=== PATIENT | female | born 1965 | race Caucasian/White ===

== ENCOUNTER 2024-07-12 14:32 | Outpatient (AMB) | payer OTHER, SELFPAY ==
--- NOTE | 2024-07-12 14:49 | A.OFFVIS_ITS ---
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 No complaints. Last Pap/HPV was negative in 03/30, no records available Last Mammogram done in 08/29 at [facility] according to the patient the results were negative, the patient is the patient's for another screening mammogram in 08/30 at [facility] Last Colonoscopy was done 2 years ago, the recommendation was to repeat in 3 years according to the patient, no records available [facility] Medical History Cervical high risk HPV (human papillomavirus) test positive Surgical History History of intestinal surgery Family History Maternal Grandmother Leukemia Ovarian cancer Social History Household Members: None Housing: Apartment Alcohol intake: current Alcohol intake frequency: holidays/special occasions o nly Patient Tobacco Use Status: Former Tobacco user Years Smoked: 30 years Current occupational status: employed Current occupation: OT Sexual orientation: Straight/Heterosexual Gender identity: Female Female Reproductive History Menstrual Menopause type: natural Total pregnancies: 2 Full term: 2 Number of Living Children: 2 Review of Systems Const All systems reviewed & are unremarkable except as noted in HPI and below Card Reports as per HPI Resp Reports as per HPI GI Reports as per HPI and Reports no additional complaints Reports as per HPI Physical Exam Vital Signs: Last Vital Signs BP 112/78 07/12/24 14:50 BMI result Body Mass Index 19.6 Const General: cooperative, healthy appearing and comfortable Chest Chest palpation & inspection: normal inspection of the chest and normal palpation of entire chest wall Breast/axilla inspection: normal inspection of the breasts and normal inspection of the axillae Breast/axilla palpation: normal palpation of the breasts, normal palpation of the axillae and no axillary lymphadenopathy Resp Effort & Inspection: normal respiratory effort Auscultation: clear to auscultation bilaterally Percussion: percussion normal Cardio Palpation: normal PMI Rate: regular rate Rhythm: regular rhythm Heart sounds: no murmurs and no rubs Peripheral pulses: Peripheral pulses 2+ throughout GI Inspection: Yes normal to inspection Palpation (GI): Soft to palpation, nontender, no guarding, not rigid and No hepatosplenomegaly present Percussion: Yes normal to percussion Auscultation: normal bowel sounds Rectal Exam - Female: deferred General: Yes bladder normal to palpation External Female Exam: No lesion Speculum Exam - Vagina: normal appearance of the vagina, normal palpation, normal vaginal discharge and not erythematous Speculum Exam - Cervix: normal appearance of the cervix and normal palpation Bimanual exam- vagina & uterus: normal bimanual exam, normal palpation, uterine size normal, bladder normal to palpation, consistency normal and normal palpation Bimanual Exam- Adnexa, other: normal adnexae, no masses and no tenderness Assessment & Plan Assessment & Plan (1) Well woman exam: Code(s): Z01.419 - Encounter for gynecological examination (general) (routine) without abnormal findings Category: Medical Plan: Cotesting done. Mammogram scheduled in a months at [facility] according to the patient Counseled the patient about the recommended dietary allowance of 1000 mg of Calcium & 600 IU of vitamin D. The patient was instructed to perform monthly self-breast exams and to schedule an annual exam in a year; All questions answered and the patient verbalized understanding. Instructed the patient to schedule annual exam in a year Coding Level of Care Code New Pt Prev Care 40-64y(02535) Diagnoses Well woman exam Z01.419
[2024-07-12 14:50] VITALS: BP 112/78; BMI 19.6
--- OUTSIDE RECORDS SUMMARY | 2024-07-12 15:41 | XMS_ITS | Encounter Summary ---
Author Organization [facility] Address [id number] [place] [phone] Care Team Providers Care Cytotechnologist Name Role Phone Holly Lal MD Primary Care Pr ovider Reason for Referral * Imaging (Routine) - Pending Review Specialty Diagnoses / Procedures Referred By Waldo corado Referred To Contact Radiology Diagnoses Liver lesion Procedures US Abdomen Limited Holly Lal MD [address] [place] [address] Phone: tel: fax: [address] Phone: tel: Referral ID Status Reason Start Date Expiration Date V isits Requested Visits Authorized [id number] Pending Review 06/19/2024 06/19/2025 1 1 Reason for Visit * Imaging (Routine) - Pending Review Specialty Diagnoses / Procedures Referred By Waldo corado Referred To Contact Radiology Diagnoses Liver lesion Procedures US Abdomen Limited Holly Lal MD [address] [place] [address] Phone: tel: fax: [address] Phone: tel: Referral ID Status Reason Start Date Expiration Date V isits Requested Visits Authorized [id number] Pending Review 06/19/2024 06/19/2025 1 1 Encounter Details Date Type Department Care Team (Latest Contact Info) Description 07/10/2024 7:27 AM EDT - 07/10/2024 11:59 PM EDT Hospital Encounter Radiology Department - [address] [phone] Liver lesion Discharge Disposition: Home or Self Care Social History Tobacco Use Types Packs/Day Years Used Date Smoking Tobacco: Former Cigarettes 0.8 42 1 980 - 2021 Comments:Quit tobacco use 2. 5 years ago; previously smoked up to 1PPD for about 30 years. smoked 5 cigs a day at the least Alcohol Use Standard Drinks/Week Comments Yes 0 (1 standard drink = 0.6 oz pur e alcohol) spijed rodrigueztzer 8 drinks a week Housing Instability Answer Date Recorde d Are you worried that in the next 2 months you may not have stable housing? No 05/17/2024 Food Access & Nutrition Answer Date Rec orded Do you have access to a vari ety of food including fruits and vegetables? Yes 05/17/2024 Access to Healthcare Answer Date Record ed Within the last 3 months, ho w many times did you visit the emergency department for your medical care? 0 05/17/2024 Health Literacy Answer Date Recorded How often do you need to hav e someone help you when you read instructions, pamphlets, or other written material from your doctor or pharmacy? Never 05/17/2024 Caregiver: How often do you need to have someone help you when you read instructions, pamphlets, or other written material from your doctor or pharmacy? Not on file 05/17/2024 Financial Risk Answer Date Recorded How hard is it for you to pa y for the very basics like food, housing, medical care, and air conditioning / heating? Patient declined 05/17/2024 Transportation Answer Date Recorded Has the lack of transportati on kept you from meetings, work, or from getting things needed for daily living? No Has the lack of transportati on kept you from medical appointments or from getting medications? No 05/17/2024 Social Isolation Answer Date Recorded How often do you feel lonely or isolated from th ose around you? Never 05/17/2024 Food Risk Answer Date Recorded Within the past 12 months we worried whether our food would run out before we got money to buy more. Never true 05/17/2024 Within the past 12 months th e food we bought just didn't last and we didn't have money to get more. Never true 05/17/2024 Dependent Care Answer Date Recorded Do you need help finding or paying for care for your loved ones. For example, residential child care counselor or elderly care for an older adult? No 05/17/2024 Education Answer Date Recorded Do you think completing more education or training, like finishing a GED, going to college, or learning a trade, would be helpful for you? No 05/17/2024 Employment and Income Answer Date Recor ded During the last four weeks, have you been actively looking for work? No 05/17/2024 Living Situation Answer Date Recorded What is your living situation? 0 05/17/2024 Comments Unknown Sex and Gender Information Value Date Recorded Sex Assigned at Female 06/09/2024 9:49 AM EDT Legal Sex Female 8:59 PM EST Gender Identity Female 06/09/2024 9:49 AM EDT Sexual Orientation Straight 06/09/2024 9: 49 AM EDT documented as of this encounter Medications at Time of Discharge calcium citrate/vitamin D3 (CITRACAL + D MAXIMUM ORAL) Take by mouth daily. LORazepam (ATIVAN) 1 mg tabletIndications :Primary insomnia Take 1 tablet (1 mg total) by mouth 1 (one) time each day if needed for anxiety. Max Daily Amount: 1 mg 28 tablet 05/17/2024 MAGNESIUM ORAL Take by mouth daily. melatonin 5 mg capsule Take 1 Capsule by mouth at bedtime as needed. MULTIVITAMIN ORAL Take by mouth daily. turmeric root extract 500 mg capsule Take by mouth daily. vitamin E, dl,tocopheryl acet, (vitamin E, dl, acetate,) 180 mg (400 unit) capsule Take 1 capsule (400 Units total) by mouth 1 (one) time each day. documented as of this encounter Discharge Disposition Disposition Code Departure Means Destination Home or Self Care documented in this encounter Plan of Treatment Upcoming Encounters Date Type Department Care Team (Late st Contact Info) Description 08/21/2024 1:20 PM EDT Consult Gastroenterology - [address] [facility] [address] [place] [phone] Saroj Redmond PA [address] [address] 08/29/2024 10:00 AM EDT Appointment Radiology Department - [address] [phone] 05/24/2025 3:00 PM EDT Office Visit Adult Medicine [address] [phone] Holly Lal MD [address] [place] [address] documented as of this encounter Procedures Procedure Name Priority Date/Time Associated Diagnosis Comments US ABDOMEN LIMITED Routine 07/10/2024 8: 06 AM EDT Liver lesion documented in this encounter Results * US Abdomen Limited (07/10/2024 8:06 AM EDT) Anatomical Region Laterality Modality Body Ultrasound 07/10/2024 8:52 AM EDT Impressions 07/10/2024 9:17 AM EDT 1.2 x 1.1 x 1.4 cm echogenic lesion in the dome of the liver, likely representing a hemangioma. 0.6 x 0.7 x 1.0 cm cyst in the right lobe of the liver. 0.9 x 0.9 x 1.0 cm probable angiomyolipoma of the upper pole of the right kidney. -------- FINAL REPORT -------- Dictated By: Nurys Guillen Dictated Date: 07/10/2024 08:52 ET Assigned Physician: Nurys Guillen Reviewed and Electronically Signed By: Nurys Guillen Signed Date: 07/10/2024 09:17 ET Workstation ID: [id number] Transcribed By: Self Edit Transcribed Date: 07/10/2024 08:52 ET Narrative 07/10/2024 9:17 AM EDT ABDOMINAL ULTRASOUND-LIMITED History: ??2 liver lesions noted on all the CT. Comparison: Dictated report of chest CT 06/19/2024 is available for review. FINDINGS: There is no evidence of cholelithiasis. The common bile duct is not dilated, measuring 3 mm. ??The gallbladder wall is not thickened. No pericholecystic fluid is seen. No ascites are seen. The visualized pancreas is normal in size and demonstrates normal echotexture. The liver measures 11.7 cm in length and demonstrates normal echotexture. There is a 1.3 x 1.1 x 1.4 cm echogenic lesion in the dome of the liver, and this likely represents a hemangioma. There is a 0.6 x 0.7 x 1.0 cm cyst in the right lobe of the liver. There is no evidence of intrahepatic ductal dilation. Normal hepatopedal flow is seen in the main portal vein. No evidence of hydronephrosis or calculus was seen in the right kidney. ?? There is a 0.9 x 0.9 x 1.0 cm rounded echogenic lesion in the upper pole of the right kidney, and this likely represents an angiomyolipoma. The right kidney measures 12.7 cm in greatest length. Procedure Note Nurys Guillen MD - 07/10/2024 ABDOMINAL ULTRASOUND-LIMITED History: 2 liver lesions noted on all the CT. Comparison: Dictated report of chest CT 06/19/2024 is available for review. FINDINGS: There is no evidence of cholelithiasis. The common bile duct isnot dilated, measuring 3 mm. The gallbladder wall is not thickened. Nopericholecystic fluid is seen. No ascites are seen. The visualized pancreas is normal in size and demonstrates normalechotexture. The liver measures 11.7 cm in length and demonstrates normalechotexture. There is a 1.3 x 1.1 x 1.4 cm echogenic lesion in the dome of the liver,and this likely represents a hemangioma. There is a 0.6 x 0.7 x 1.0 cm cyst in the right lobe of the liver. There is no evidence of intrahepatic ductal dilation. Normal hepatopedalflow is seen in the main portal vein. No evidence of hydronephrosis or calculus was seen in the right kidney. There is a 0.9 x 0.9 x 1.0 cm rounded echogenic lesion in the upper poleof the right kidney, and this likely represents an angiomyolipoma. The right kidney measures 12.7 cm in greatest length. IMPRESSION: 1.2 x 1.1 x 1.4 cm echogenic lesion in the dome of the liver, likelyrepresenting a hemangioma. 0.6 x 0.7 x 1.0 cm cyst in the right lobe of the liver. 0.9 x 0.9 x 1.0 cm probable angiomyolipoma of the upper pole of the rightkidney. -------- FINAL REPORT -------- Dictated By: Nurys Guillen Dictated Date: 07/10/2024 08:52 ET Assigned Physician: Nurys Guillen Reviewed and Electronically Signed By: Nurys Guillen Signed Date: 07/10/2024 09:17 ET Workstation ID: [id number] Transcribed By: Self Edit Transcribed Date: 07/10/2024 08:52 ET us Holly Lal MD [facility] [place] Final Result documented in this encounter Visit Diagnoses Diagnosis Liver lesion Other specified disorders of liver Encounter for screening mammogram for breast cancer documented in this encounter Additional Health Concerns Assessment Noted Time PHQ-9 Depression Total Score: 3 05/18/19 25 3:00 PM EDT documented as of this encounter Care Teams Cytotechnologist Relationship Specialty Start Date End Date Holly Lal MD [address] [place] [phone] PCP - General 10/02/22 documented as of this encounter
--- OUTSIDE RECORDS SUMMARY | 2024-07-12 15:41 | XMS_ITS | Encounter Summary ---
Author Organization [facility] Address [id number] [place] [phone] Care Team Providers Care Window Clerk Name Role Phone Holly Lal MD Primary Care Pr ovider Reason for Referral * Consultation (Routine) - Authorized Specialty Diagnoses / Procedures Referred By Waldo corado Referred To Contact Nephrology Diagnoses Angiomyolipoma of kidney Holly Lal MD [address] [place] [address] Phone: tel: fax: Nephrology [address] Phone: tel: fax: Referral ID Status Reason Start Date Expiration Date Visits Requested Visits Authorized [id number] Authorized Specialty Services Required 07/12/2024 07/12/2025 1 1 * Consultation (Routine) - Authorized Specialty Diagnoses / Procedures Referred By Waldo corado Referred To Contact Hematology / Hematology and Oncology Diagnoses Neutropenia, unspecified type (CMS/HCC V24) Holly Lal MD [address] [place] [address] Phone: tel: fax: [facility] Hematology Oncology [address] [place] [address] Phone: tel: fax: Referral ID Status Reason Start Date Expiration Date Visits Requested Visits Authorized [id number] Authorized Specialty Services Required 07/12/2024 07/12/2025 1 1 * Consultation (Routine) - Authorized Specialty Diagnoses / Procedures Referred By Waldo corado Referred To Contact Gastroenterology Diagnoses Liver cyst Liver hemangioma Holly Lal MD [address] [place] [phone] Phone: tel: fax: Gastroenterology - [address] [facility] [address] [place] [phone] Phone: tel: fax: Referral ID Status Reason Start Date Expiration Date Visits Requested Visits Authorized [id number] Authorized Specialty Services Required 07/12/2024 07/12/2025 1 1 Encounter Details Date Type Department Care Team (Late st Contact Info) Description 07/12/2024 Telephone Adult Medicine [address] [phone] Holly Lal MD [address] [place] [phone] Social History Tobacco Use Types Packs/Day Years Used Date Smoking Tobacco: Former Cigarettes 0.8 42 1 980 - 2021 Comments:Quit tobacco use 2. 5 years ago; previously smoked up to 1PPD for about 30 years. smoked 5 cigs a day at the least Alcohol Use Standard Drinks/Week Comments Yes 0 (1 standard drink = 0.6 oz pur e alcohol) maury valadez 8 drinks a week Housing Instability Answer [...] care for your loved ones. For example, child support specialist or elderly care for an older adult? [...] AM EDT documented as of this encounter Progress Notes * Holly Lal MD - 07/12/2024 8:23 AM EDT Called patient to discuss results. Abdominal ultrasound showed suspected liver hemangioma and livercyst. It also showed suspected angiomyolipoma of the kidney Blood work was overall normal with exception of mild neutropenia/leukopenia She was referred to GI for the liver cyst, hematology for the neutropenia and nephrology for the angiomyolipoma. All questions answered documented in this encounter Plan of Treatment Upcoming Encounters Date Type Department Care Team ([facility] st Contact Info) Description 08/21/2024 1:20 PM EDT Consult Gastroenterology - [address] [place] [phone] Saroj Redmond PA [address] [place] [phone] 08/29/2024 10:00 AM EDT Appointment Radiology Department - [address] [phone] 05/24/2025 3:00 PM EDT Office Visit Adult Medicine [address] [phone] Holly Lal MD [address] [place] [phone] Scheduled Referrals Name Type Priority Associated Diagnoses Order Schedule Ambulatory referral to Gastroenterology Outpatient Referral Routine Liver cyst Liver hemangioma Expected: 07/12/2024, Expires: 07/12/2025 Ambulatory referral to Hematology Outpatient Referral Routine Neutropenia, unspecified type (CMS/HCC V24) 1 Occurrences starting 07/12/2024 until 07/12/2025 Ambulatory referral to Nephrology Outpatient Referral Routine Angiomyolipoma of kidney 1 Occurrences starting 07/12/2024 until 07/12/2025 documented as of this encounter Visit Diagnoses Diagnosis Angiomyolipoma of kidney- Primary Liver cyst Other specified disorders of liver Liver hemangioma Neutropenia, unspecified type (CMS/HCC V24) Encounter for screening mammogram for breast cancer documented in this encounter Additional Health Concerns Assessment Noted Time PHQ-9 Depression Total Score: 3 05/18/19 25 3:00 PM EDT documented as of this encounter Care Teams Window Clerk Relationship Specialty Start Date End Date Holly Lal MD [address] [place] [id number] PCP - General 10/02/22 documented as of this encounter
--- OUTSIDE RECORDS SUMMARY | 2024-07-12 15:41 | XMS_ITS | Clinical Summary ---
Author Organization [address] Address [address] [place] [phone] Phone Care Team Providers Care Flap Curer Name Role Phone Holly Lal MD Primary Care Pr ovider Allergies Active Allergy Reactions Criticality Noted Date Comments Ciprofloxacin 05/14/2023 Metronidazole 05/14/2023 Medications melatonin 5 mg capsule Take 1 Capsule by mouth at bedtime as needed. Active turmeric root extract 500 mg capsule Take by mouth daily. Active MULTIVITAMIN ORAL Take by mouth daily. Active MAGNESIUM ORAL Take by mouth daily. Active calcium citrate/vitamin D3 (CITRACAL + D MAXIMUM ORAL) Take by mouth daily. Active vitamin E, dl,tocopheryl acet, (vitamin E, dl, acetate,) 180 mg (400 unit) capsule Take 1 capsule (400 Units total) by mouth 1 (one) time each day. Active LORazepam (ATIVAN) 1 mg tabletIndicatio ns:Primary insomnia Take 1 tablet (1 mg total) by mouth 1 (one) time each day if needed for anxiety. Max Daily Amount: 1 mg 28 tablet 05/17/2024 Active Active Problems Problem Noted Date Diagnosed Date Angiomyolipoma of kidney 07/12/2024 Liver cyst 07/12/2024 Liver hemangioma 07/12/2024 Neutropenia (CMS/HCC V24) 07/12/2024 Pulmonary nodules 06/19/2024 Centrilobular emphysema (CMS/HCC V24, CMS/HCC V2 8) 06/19/2024 Liver lesion 06/19/2024 Moderate tobacco use disorder, in sustained diego ssion 05/17/2024 Assessment & Plan (05/17/2024 10:36 PM EDT): Quit tobacco use 2.5 years ago; previously smoked up to 1PPD for about 30 years. She will benefit from lung cancer screening and is referred Orders: Ambulatory referral to Thoracic Surgery; Future Current every day nicotine vaping 05/17/2024 Assessment & Plan (05/17/2024 10:36 PM EDT): Cessation counseling provided. History of diverticulitis of colon 05/17/2024 Assessment & Plan (05/17/2024 10:36 PM EDT): See HPI Advised that I recommend evaluation in the office for flares. I am aware Levaquin works best for her flares and we are happy to prescribe this at an office visit. Advised if she is not able to get a timely appt, she can go to Urgent care Cervical radiculopathy 05/15/2023 Lipoma 05/15/2023 Chronic left shoulder pain 05/15/2023 Primary insomnia 05/15/2023 Assessment & Plan (05/17/2024 10:36 PM EDT): Continue ativan as needed. 28 tablets last 6 months No indication for CSC MassPat reviewed and appropriate Orders: LORazepam (ATIVAN) 1 mg tablet; Take 1 tablet (1 mg total) by mouth 1 (one) time each day if needed for anxiety. Max Daily Amount: 1 mg History of colectomy 05/15/2023 Syncope 06/22/2022 Encounters Date Type Department Care Team Description 07/12/2024 Telephone Adult Medicine [address] [phone] Holly Lal MD 07/10/2024 7:27 AM EDT - 07/10/2024 11:59 PM EDT Hospital Encounter Radiology Department - [address] [phone] Liver lesion Discharge Disposition: Home or Self Care 06/20/2024 Telephone Lung Screening Program - [address] [phone] Latia Paulino MA Results (Baseline - Lung Screening) 06/14/2024 3:45 PM EDT - 06/14/2024 11:59 PM EDT Hospital Encounter [facility] CT Scan [address] [place] [phone] Encounter for screening for lung cancer; History of tobacco use Discharge Disposition: Home or Self Care 06/14/2024 3:30 PM EDT Office Visit Lung Screening Program - [place] [address] [facility] [address] [place] [phone] Ward Leung PA Encounter for screening for malignant neoplasm of lung in former smoker who quit in past 15 years with 30 pack year history or greater (Primary Dx); Moderate tobacco use disorder, in sustained remission 06/09/2024 Telephone Adult Medicine [address] [phone] Saray Cottrell MA Letter for School/Work 06/05/2024 Telephone Adult Medicine [address] [phone] Camila Baird MA letter request 05/22/2024 Telephone Adult [address] [phone] Holly Lal MD Referral 05/17/2024 3:00 PM EDT Office Visit [address] [phone] Holly Lal MD Annual physical exam (Primary Dx); Moderate tobacco use disorder, in sustained remission; Current every day nicotine vaping; Primary insomnia; Cervical cancer screening; History of diverticulitis of colon; Screening for metabolic disorder; Skin lesion; Calf cramp 04/17/2024 Telephone Adult Medicine [address] [phone] Steffany Watkins RN 04/17/2024 Nurse Triage Adult [address] [phone] Holly Lal MD Diverticulitis from Last 3 Months Immunizations Name Administration Dates Next Due Tdap Tetanus diptheria acell ular pertussis (Boostrix; Adacel) 7yo and older 05/08/2022 Surgical History Surgery Date Site/Laterality Comments OTHER SURGICAL HISTORY 03/08/2004 - 03/07/2005 PROCEDURE: DE COLECTOMY PARTIAL W/ANASTOMOSIS COLONOSCOPY 12/19/2019 repeat in 10 years; diverticulosis Medical History Medical History Date Comments Occipital trauma DX:Occipital tr auma; COMMENT: left, laceration URI (upper respiratory infection) DX:URI (upper respiratory infection) Anxiety DX:Anxiety Insomnia DX:Insomnia Tobacco use DX:Tobacco use Diverticulitis DX:Diverticuliti s Family History Medical History Relation Name Comments Other: Diverticular Disease Brother Prostate cancer Father adopted; bio oogical father VERONIQUE huynh she was one Cervical cancer Maternal Grandmother Leukemia Maternal Grandmother Other: Malignant Neoplasm Disease Maternal Grandmother Uterine cancer Maternal Grandmother Other: Diverticular Disease Mother Diverticulosis Sister Leukemia Uncle Other: Tongue Carcinoma Uncle Breast cancer Neg Hx Colon cancer Neg Hx Ovarian cancer Neg Hx Relation Name Status Comments Brother Father Maternal Grandfather Maternal Grandmother Mother Alive Paternal Grandfather Paternal Grandmother Sister Uncle Maternal Social History Tobacco Use Types Packs/Day Years Used Date Smoking Tobacco: Former Cigarettes 0.8 42 1 980 - 2021 Tobacco Cessation:Counseling Given: Not Answered Comments:Quit tobacco use 2.5 years ago; previously smoked up to 1PPD [...] for your loved ones. For example, child welfare counselor or elderly care for an older [...] Orientation Straight 06/09/2024 9: 49 AM EDT Obstetrics History Last Filed Vital Signs Vital Sign Reading Time Taken Comments Blood Pressure 114/83 05/17/2024 3:12 PM EDT Pulse 71 05/17/2024 3:12 PM EDT Temperature 36.6 ??C (97.9 ??F) 06/14/2024 3:26 PM ED T Respiratory Rate 17 05/17/2024 3:12 PM EDT Oxygen Saturation - - Inhaled Oxygen Concentration - - Weight 57.2 kg (126 lb) 05/17/2024 3:12 PM EDT Height 170.2 cm (5' 7 ) 05/17/2024 3:12 PM EDT Body Mass Index 19.73 05/17/2024 3:12 PM EDT Plan of Treatment Upcoming Encounters Date Type Department Care Team (Late st Contact Info) Description 08/21/2024 1:20 PM EDT Consult Gastroenterology - [facility] [address] [facility] [address] [place] [phone] Saroj [place] PA [address] [facility] [address] [place] [address] [place] [address] 08/29/2024 10:00 AM EDT Appointment Radiology Department - [address] [phone] 05/24/2025 3:00 PM EDT Office Visit Adult Medicine [facility] - [address] [phone] Holly Lal MD [address] [place] [phone] Health Maintenance Due Date Last Done Comments HIV Screening 04/02/2023 Zoster Vaccines (2 of 2) 07/13/2024 05/18/2024 Cervical Cancer Screening: Pap Smear 03/24/2025 03/24/2022 Depression Screening 05/17/2025 05/17/2024 Social Influencers of Health Screening 05/17/2025 05/17/2024 Lung Cancer Screening (Low Dose CT) 06/14/2025 06/14/2024 Breast Cancer Screening 06/23/2025 06/24/2023, 07/29 Cholesterol Screening (Lipid Panel) 07/10/2029 07/10/2024, 06/25/2023 Colorectal Cancer Screening: Colonoscopy 12/18/2029 12/19/2019 DTaP,Tdap,and Td Vaccines (4 - Td or Tdap) 05/08/2032 05/08/2022, 12/06/2016, 01/07/2003 RSV Immunization Adult Patients (1 - 1-dose 75+ series) 2040 Influenza Vaccine Discontinued 11/27/2020, , 12/06/2017, Additional history exists COVID-19 Vaccine Discontinued 04/07/2021, , 06/03/2020 Hepatitis C Screening Completed 06/25/2023 HIB Vaccines Aged Out No longer eligi ble based on patient's age to complete this topic HPV Vaccines Aged Out No longer eligi ble based on patient's age to complete this topic Hepatitis A Vaccines Aged Out No long er eligible based on patient's age to complete this topic Hepatitis B Vaccines Discontinued IPV Vaccines Aged Out No longer eligi ble based on patient's age to complete this topic MMR Vaccines Aged Out No longer eligi ble based on patient's age to complete this topic Meningococcal ACWY Vaccine Aged Out N o longer eligible based on patient's age to complete this topic Meningococcal B Vaccine Aged Out No l onger eligible based on patient's age to complete this topic Pneumococcal Vaccine: 50+ Years Discontinued Pneumococcal Vaccine: Pediatrics (0 to 5 Years) and At-Risk Patients (6 to 64 Years) Discontinued RSV Immunization Patients Under 20 months Aged Out No longer eligible based on patient's age to complete this topic Varicella Vaccines Aged Out No longer eligible based on patient's age to complete this topic Procedures Procedure Name Priority Date/Time Associated Diagnosis Comments CBC WITH AUTO DIFFERENTIAL Routine 07/10/2024 8:26 AM EDT Screening for metabolic disorder CBC AND DIFFERENTIAL Routine 07/10/2024 8:26 AM EDT Screening for metabolic disorder COMPREHENSIVE METABOLIC PANEL Routine 07/10/2024 8:26 AM EDT Screening for metabolic disorder LIPID PANEL WITH REFLEX TO DIRECT LDL Routine 07/10/2024 8:26 AM EDT Screening for metabolic disorder HEMOGLOBIN A1C Routine 07/10/2024 8:26 AM EDT Screening for metabolic disorder US ABDOMEN LIMITED Routine 07/10/2024 8: 06 AM EDT Liver lesion CT LUNG SCREENING Routine 06/14/2024 4:2 1 PM EDT Encounter for screening for lung cancer History of tobacco use HEPATITIS C SCREENING Routine 06/25/2023 SCREENING MAMMOGRAPHY BI 2-VIEW BREAST INC CAD Routine 06/24/2023 4:12 PM EDT Encounter for screening mammogram for malignant neoplasm of breast COLONOSCOPY Routine 12/19/2019 from Last 3 Months or Most Recently Relevant to Health Maintenance Results * Lipid panel with reflex to direct LDL (07/10/2024 8:26 AM EDT) Cholesterol 190 0 - 200 mg/dL LAB CHEMISTRY METHOD 07/10/2024 11:16 AM [facility] Triglycerides 65 0 - 150 mg/dL LAB CHEMISTRY METHOD 07/10/2024 11:16 AM [facility] HDL 98 >=40 mg/dL LAB CHEMISTRY METHOD 07/10/2024 11:16 AM [facility] LDL Calculated 79 0 - 100 mg/dL LAB CHEMISTRY METHOD 07/10/2024 11:16 AM [facility] VLDL Cholesterol Tato 13 mg/dL LAB CHEMISTRY METHOD 07/10/2024 11:16 AM [facility] Non HDL Chol. (LDL+VLDL) 92 <145 mg/dL LAB CHEMISTRY METHOD 07/10/2024 11:16 AM [facility] Chol/HDL Ratio 1.9 0.0 - 4.4 LAB CHEMISTRY METHOD 07/10/2024 11:16 AM [facility] Blood Venous blood specimen / Unknown Venipuncture / Unknown 07/10/2024 8:26 AM EDT 07/10/2024 8:26 AM EDT Holly Lal MD LAB BLOOD ORDERA BLES Final Result [facility] [address] [place] [address], * (ABNORMAL) CBC auto differential (07/10/2024 8:26 AM EDT) WBC 3.4(L) 4.8 - 10.8 K/mcL LAB HEMETOLOGY METHOD 07/10/2024 10:51 AM EDT [facility] RBC 4.20 3.80 - 4.80 M/mcL LAB HEMETOLOGY METHOD 07/10/2024 10:51 AM EDT [facility] Hemoglobin 14.1 11.5 - 16.0 g/dL LAB HEMETOLOGY METHOD 07/10/2024 10:51 AM EDT [facility] Hematocrit 40.9 35.0 - 47.0 % LAB HEMETOLOGY METHOD 07/10/2024 10:51 AM EDT [facility] MCV 97.1 79.0 - 98.0 FL LAB HEMETOLOGY METHOD 07/10/2024 10:51 AM EDT [facility] MCH 33.5(H) 27.0 - 32.0 pcg LAB HEMETOLOGY METHOD 07/10/2024 10:51 AM EDT [facility] MCHC 34.5 32.0 - 37.0 g/dL LAB HEMETOLOGY METHOD 07/10/2024 10:51 AM EDT [facility] RDW 12.1 11.0 - 15.0 % LAB HEMETOLOGY METHOD 07/10/2024 10:51 AM EDT [facility] Platelets 169 130 - 400 K/mcL LAB HEMETOLOGY METHOD 07/10/2024 10:51 AM [facility] MPV 10.8 7.0 - 11.0 FL LAB HEMETOLOGY METHOD 07/10/2024 10:51 AM [facility] NRBC 0.0 <1.0 % LAB HEMETOLOGY METHOD 07/10/2024 10:51 AM [facility] NRBC Absolute 0.00 <0.10 K/mcL LAB HEMETOLOGY METHOD 07/10/2024 10:51 AM [facility] Neutrophils Relative 43.6 % LAB HEMETOLOGY METHOD 07/10/2024 10:51 AM [facility] Lymphocytes Relative 45.7 % LAB HEMETOLOGY METHOD 07/10/2024 10:51 AM [facility] Monocytes Relative 8.3 % LAB HEMETOLOGY METHOD 07/10/2024 10:51 AM [facility] Eosinophils Relative 1.2 % LAB HEMETOLOGY METHOD 07/10/2024 10:51 AM [facility] Basophils Relative 0.9 % LAB HEMETOLOGY METHOD 07/10/2024 10:51 AM [facility] Immature Granulocytes Relative 0.3 % LAB HEMETOLOGY METHOD 07/10/2024 10:51 AM [facility] Neutrophils Absolute 1.47(L) 1.50 - 7.00 K/mcL LAB HEMETOLOGY METHOD 07/10/2024 10:51 AM [facility] Lymphocytes Absolute 1.54 1.00 - 5.00 K/mcL LAB HEMETOLOGY METHOD 07/10/2024 10:51 AM [facility] Monocytes Absolute 0.28 0.20 - 1.00 K/mcL LAB HEMETOLOGY METHOD 07/10/2024 10:51 AM [facility] Eosinophils Absolute 0.04 0.00 - 0.50 K/mcL LAB HEMETOLOGY METHOD 07/10/2024 10:51 AM EDT [facility] Basophils Absolute 0.03 0.00 - 0.20 K/[facility] HEMETOLOGY METHOD 07/10/2024 10:51 AM EDT [facility] Immature Granulocytes Absolute 0.01 0.00 - 0.03 K/[facility] LAB HEMETOLOGY METHOD 07/10/2024 10:51 AM EDT [facility] Blood Venous blood specimen / Unknown Venipuncture / Unknown 07/10/2024 8:26 AM EDT 07/10/2024 8:26 AM EDT Holly Lal MD LAB BLOOD ORDERA BLES Final Result Performing Organization Address City/[facility]/ZIP Co de Phone Number [facility] [address] [place] [address], [place] [phone] * Hemoglobin A1c (07/10/2024 8:26 AM EDT) Hemoglobin A1C 5.0 <6.5 % LAB CHEMISTRY METHOD 07/10/2024 1:43 PM EDT [facility] Mean Bld Glu Estim. 97 mg/dL LAB CHEMISTRY METHOD 07/10/2024 1:43 PM EDT [facility] Blood Venous blood specimen / Unknown Venipuncture / Unknown 07/10/2024 8:26 AM EDT 07/10/2024 8:26 AM EDT us Holly Lal MD LAB BLOOD ORDERA BLES Final Result [facility] [address] [place] [address], [place] [phone] * Comprehensive metabolic panel (07/10/2024 8:26 AM EDT) Sodium 141 133 - 145 mmol/L LAB CHEMISTRY METHOD 07/10/2024 11:16 AM [facility] Potassium 4.1 3.5 - 5.5 mmol/L LAB CHEMISTRY METHOD 07/10/2024 11:16 AM [facility] Chloride 105 96 - 110 mmol/L LAB CHEMISTRY METHOD 07/10/2024 11:16 AM [facility] CO2 28 21 - 32 mmol/L LAB CHEMISTRY METHOD 07/10/2024 11:16 AM [facility] Anion Gap 8 3 - 11 LAB CHEMISTRY METHOD 07/10/2024 11:16 AM [facility] Glucose 80 70 - 100 mg/dL LAB CHEMISTRY METHOD 07/10/2024 11:16 AM [facility] BUN 7 5 - 25 mg/dL LAB CHEMISTRY METHOD 07/10/2024 11:16 AM [facility] Creatinine 0.55 0.50 - 1.10 mg/dL LAB CHEMISTRY METHOD 07/10/2024 11:16 AM [facility] eGFR 106 >=60 mL/min/1. 73m2 LAB CHEMISTRY METHOD 07/10/2024 11:16 AM [facility] Comment:Calculation based on the??Chronic Kidney Disease Epidemiology Collaboration (CKD-EPI) equation refit??without adjustment for race. BUN/Creatinine Ratio 12.7 LAB CHEMISTRY METHOD 07/10/2024 11:16 AM [facility] Calcium 8.9 8.5 - 10.5 mg/dL LAB CHEMISTRY METHOD 07/10/2024 11:16 AM [facility] AST (SGOT) 26 10 - 42 unit/L LAB CHEMISTRY METHOD 07/10/2024 11:16 AM [facility] ALT (SGPT) 25 10 - 60 unit/L LAB CHEMISTRY METHOD 07/10/2024 11:16 AM [facility] Alkaline Phosphatase 66 42 - 121 unit/L LAB CHEMISTRY METHOD 07/10/2024 11:16 AM EDT [facility] Total Protein 7.1 6.0 - 8.0 g/dL LAB CHEMISTRY METHOD 07/10/2024 11:16 AM EDT [facility] Albumin 4.0 3.2 - 5.0 g/dL LAB CHEMISTRY METHOD 07/10/2024 11:16 AM EDT [facility] Total Bilirubin 1.0 0.0 - 1.4 mg/dL LAB CHEMISTRY METHOD 07/10/2024 11:16 AM EDT [facility] Blood Venous blood specimen / Unknown Venipuncture / Unknown 07/10/2024 8:26 AM EDT 07/10/2024 8:26 AM EDT us Holly Lal MD LAB BLOOD ORDERA BLES Final Result [facility] [address] [place] [address], [place] [phone] * US Abdomen Limited (07/10/2024 8:06 AM [...] Signed Date: 07/10/2024 09:17 ET Workstation ID: [id number] Transcribed By: Self Edit Transcribed Date: 07/10/2024 [...] Signed Date: 07/10/2024 09:17 ET Workstation ID: [id number] Transcribed By: Self Edit Transcribed Date: 07/10/2024 08:52 ET us Holly Lal MD IMG US PROCEDURE S Final Result * CT Lung Screening (06/14/2024 4:21 PM EDT) Anatomical Region Laterality Modality Chest Computed Tomogra phy 06/19/2024 9:22 AM EDT Impressions 06/19/2024 10:10 AM EDT Impression: 1. Few sub-4 mm pulmonary nodules. Continued annual low-dose screening is recommended. 2. 12 mm hepatic lesion, for which targeted ultrasound is recommended. Lung-RADS Category: ??Lung-RADS 2: Nodule(s) with benign appearance or behavior. Continue annual screening with Low Dose Chest CT in 12 months. ?? Modifier S: Clinically Significant or Potentially Clinically Significant Findings. S code given for the 12 mm hepatic lesion which requires additional imaging evaluation. [employer]eler[employer] PA ([id number]) -------- FINAL REPORT -------- Dictated By: Tara Barakat Dictated Date: 06/19/2024 09:22 ET Assigned Physician: Tara Barakat Reviewed and Electronically Signed By: Tara Barakat Signed Date: 06/19/2024 10:10 ET Workstation ID: [id number] Transcribed By: Self Edit Transcribed Date: 06/19/2024 09:30 ET Narrative 06/19/2024 10:10 AM EDT History: ??59 year-old 31 pack-year former smoker, asymptomatic, for lung cancer screening. Quit smoking 3 years ago. Comparison: No comparison imaging at this institution. Technique: Helical volumetric imaging of the thorax was performed, using low- dose technique, without IV contrast. DLP: 114.80 mGy/cm ??CTDIvol: 3.22 mGy IquaT Iterative reconstruction technique Findings: Lungs and Airways: The trachea and central bronchial tree are patent. Minimal peripheral mucous plugging is noted. There is patchy centrilobular emphysema. Minimal dependent density is seen at the lung bases, possibly atelectasis. Few sub-4 mm solid, noncalcified nodules are seen bilaterally, the largest a 3 mm nodule in the right lower lobe (image 154 series 3). Pleura: No pleural or pericardial effusions are seen. Base of neck, mediastinum and heart: The heart is normal in size. Minimal atherosclerotic calcification is seen in the aortic arch. Included portions of the thyroid gland are unremarkable. No thoracic lymphadenopathy is seen. Soft tissues: The overlying soft tissues are unremarkable. A 7 mm circumscribed round hypoattenuating lesion in the dome of the liver most likely represents a cyst. There is an adjacent 12 mm hypoattenuating lesion (image 101 series 4) that is well above water attenuation, with a solid lesion not excluded. Abdomen: This study was performed without contrast and with lower than standard dose. These factors reduce the sensitivity for detection of small lesions in the upper abdomen. A 7 mm circumscribed round hypoattenuating lesion in the dome of the liver most likely represents a cyst. There is an adjacent 12 mm hypoattenuating lesion (image 101 series 4) that is well above water attenuation, with a solid lesion not excluded. Procedure Note Tara Barakat MD - 06/19/2024 History: 59 year-old 31 pack-year former smoker, asymptomatic, for lungcancer screening. Quit smoking 3 years ago. Comparison: No comparison imaging at this institution. Technique: Helical volumetric imaging of the thorax was performed, usinglow-dose technique, without IV contrast. DLP: 114.80 mGy/cm CTDIvol: 3.22 mGy [employer] VCT Iterative reconstruction technique Findings: Lungs and Airways: The trachea and central bronchial tree are patent.Minimal peripheral mucous plugging is noted. There is patchy centrilobularemphysema. Minimal dependent density is seen at the lung bases, possiblyatelectasis. Few sub-4 mm solid, noncalcified nodules are seen bilaterally, the largesta 3 mm nodule in the right lower lobe (image 154 series 3). Pleura: No pleural or pericardial effusions are seen. Base of neck, mediastinum and heart: The heart is normal in size. Minimalatherosclerotic calcification is seen in the aortic arch. Includedportions of the thyroid gland are unremarkable. No thoraciclymphadenopathy is seen. Soft tissues: The overlying soft tissues are unremarkable. A 7 mmcircumscribed round hypoattenuating lesion in the dome of the liver mostlikely represents a cyst. There is an adjacent 12 mm hypoattenuatinglesion (image 101 series 4) that is well above water attenuation, with asolid lesion not excluded. Abdomen: This study was performed without contrast and with lower thanstandard dose. These factors reduce the sensitivity for detection of smalllesions in the upper abdomen. A 7 mm circumscribed round hypoattenuatinglesion in the dome of the liver most likely represents a cyst. There is anadjacent 12 mm hypoattenuating lesion (image 101 series 4) that is wellabove water attenuation, with a solid lesion not excluded. IMPRESSION: Impression: 1. Few sub-4 mm pulmonary nodules. Continued annual low-dose screening isrecommended. 2. 12 mm hepatic lesion, for which targeted ultrasound is recommended. Lung-RADS Category: Lung-RADS 2: Nodule(s) with benign appearance orbehavior. Continue annual screening with Low Dose Chest CT in 12 months.Modifier S: Clinically Significant or Potentially Clinically SignificantFindings. S code given for the 12 mm hepatic lesion which requires additionalimaging evaluation. Telerad PA ([id number]) -------- FINAL REPORT -------- Dictated By: Tara Barakat Dictated Date: 06/19/2024 09:22 ET Assigned Physician: Tara Barakat Reviewed and Electronically Signed By: Tara Braakat Signed Date: 06/19/2024 10:10 ET Workstation ID: [id number] Transcribed By: Self Edit Transcribed Date: 06/19/2024 09:30 ET Angie Vernon MD IMG CT PROCEDURES Final Result * Hepatitis C Screening (06/25/2023) Hepatitis C Screening abstracted Historical Provider HEALTH MAINTENANCE Final Result * SCREENING MAMMOGRAPHY BI 2-VIEW BREAST INC CAD (06/24/2023 4:12 PM EDT) Anatomical Region Laterality Modality Radiographic Lily ging 05/14/2023 3:14 PM EST Narrative 06/25/2023 10:12 AM EDT This is a summary report. The complete report is available in the patient's medical record. If you cannot access the medical record, please contact the sending organization for a detailed fax or copy. Full field digital screening tomosynthesis mammography, reviewed with CAD and compared to previous. The breasts are composed of fatty and fibroglandular tissue. ??No suspicious mass, architectural distortion or suspicious calcifications are identified. IMPRESSION: : No mammographic evidence of malignancy. BIRADS 1-Negative; N. 5 year breast cancer risk assessment 1.2 % Lifetime breast cancer risk assessment 6.9 % Breast cancer risk category Breast cancer risk not assessed Procedure Note Mauricio Langston MD - 10/25/2023 This is a summary report. The complete report is available in thepatient's medical record. If you cannot access the medical record, pleasecontact the sending organization for a detailed fax or copy. Full field digital screening tomosynthesis mammography, reviewed with CADand compared to previous. The breasts are composed of fatty andfibroglandular tissue. No suspicious mass, architectural distortion orsuspicious calcifications are identified. IMPRESSION: : No mammographic evidence of malignancy. BIRADS 1-Negative; N. 5 year breast cancer risk assessment 1.2 % Lifetime breast cancer risk assessment 6.9 % Breast cancer risk category Breast cancer risk not assessed Holly Lal MD IMG XR PROCEDURE S Final Result * Colonoscopy (12/19/2019) Colonoscopy no interpreta tion,abstr actedd Anatomical Region Laterality Modality Other Historical Provider HEALTH MAINTENANCE Final Result from Last 3 Months or Most Recently Relevant to Health Maintenance Insurance [facility] Care Teams Flap Curer Relationship Specialty Start Date End Date Holly Lal MD [address] [place] [address] PCP - General 10/02/22
--- OUTSIDE RECORDS SUMMARY | 2024-07-12 15:41 | XMS_ITS | Data Portability ---
Author Organization [facility], , [facility] Address [address] [place] [address] Care Team Providers Care Housekeeping Department Worker Name Role Phone JOEL BELTRAN Webbing Seamer Pound Net Assessment Encounter Date Assessment Date Assessment LastModified by Organization Details LastModified Time 05/10/2020 05/10/2020 Patient agreed to this visit via a secure telehealth platform due to the COVID -19 pandemic. Patient understands this is a scheduled visit and the usual procedures with regard to billing and confidentialit y apply. Patient was notified that the provider location is Patient location: home During the visit the patient? s medical history and medical record were reviewed. The patient was notified to call our office for worsening or urgent symptoms. Not available 05/10/2020 11:36:12 08/01/2020 08/01/2020 Patient agreed to this visit via a secure telehealth platform due to the COVID -19 pandemic. Patient understands this is a scheduled visit and the usual procedures with regard to billing and confidentialit y apply. Patient was notified that the provider location is home Patient location: home During the visit the patient? s medical history and medical record were reviewed. The patient was notified to call our office for worsening or urgent symptoms. Not available 08/01/2020 13:52:10 Plan of Treatment Reminders Order Date Submit Date Provider Last Modified By Organization Details Last Modified Time Details Appointments None recorded. Lab tissue transglutam inase iga Ab, serum 2022 023 [facility], [address] [facility], [place], [address], 3 23:53:54 gliadin peptide igg Ab, serum 2022 023 [facility], [address] [place] [address], [address], 3 23:53:52 gliadin peptide iga Ab, serum 2022 023 [facility], [address] [place] [address], [address], 3 23:53:50 CBC 2022 023 [facility], [address] [place] [address], [address], 3 16:53:09 CMP, serum or plasma 2022 023 [facility], [address] [place] [address], [address], 3 16:12:57 TSH, serum or plasma 2022 023 [facility], [address] [place] [address], [address], 3 11:08:12 pap, LB + HPV - if HPV positive reflex to HPV subtyping 2022 023 [facility] (Pathology), [address] [place] [address], [address], 3 11:12:17 pap, LB + HPV - if HPV positive reflex to HPV subtyping 2021 022 [facility] (Pathology), [address] [place] [address], [address], 2 18:05:50 Referral plastic surgeon referral - small lesion on right face- growing/benson nging over past 6 mo- needs removal 2020 021 jaylen 1 Tomas Garza MD, [address] [place] [address], [address], 1 08:46:46 Procedures None recorded. Surgeries None recorded. Imaging MAMMO, screening, tomosynthes is, bilateral [address] (Imaging), [address], [place], [address], 3 21:27:54 MAMMO, screening, tomosynthes is, bilateral 2020 021 [facility] (Imaging), [address] [place], [address], 1 08:42:31 MAMMO, screening, tomosynthes is, bilateral - new provider [address] (Imaging), [address] [place], [address], 1 14:24:51 MAMMO, screening, tomosynthes is, bilateral [address] (Imaging), [address] [place], [address], 1 11:38:49 Medication Orders None recorded. Patient TargetsNo targets recorded. Patient Instructions Encounter Date Encounter Id Patient Instructions Last Modified By Organization Details Last Modified Time 05/10/2020 [id number] deciding about using medicines to quit smoking tfurcolo Not available 05/10/2020 11:53:31 Quitting Tobacco : Care Instructions tfurcolo Not available 05/10/2020 11:53:31 Counseling done {{Patient not ready to quit Contemplatin g quitting Tapering Cigarettes signed up for support prescript ion for stop smoking medication given}} {{Patient not ready to quit Contemplatin g quitting Tapering Cigarettes signed up for support prescript ion for stop smoking medication given}} Goal for follow up visit {{adding exercise regular meals stress management improv ing sleep therapist identifying sponsor}} {{adding exercise regular meals stress management improv ing sleep therapist identifying sponsor}} {{adding exercise regular meals stress management improv ing sleep therapist identifying sponsor}}My Health To Do List {{go to [email or web address] or call si gn up for marika text 2 quit or other stop smoking marika contact MobileIron.[email or web address]}} {{go to [email or web address] or call si gn up for marika text 2 quit or other stop smoking marika contact MobileIron.gov}} {{go to [email or web address] or call si gn up for marika text 2 quit or other stop smoking marika contact MobileIron.gov}} Not available 05/10/2020 11:37:59 08/01/2020 [id number] deciding about using medicines to quit smoking Not available 08/01/2020 11:39:09 Quitting Tobacco : Care Instructions Not available 08/01/2020 11:39:08 Counseling done {{Patient not ready to quit Contemplatin g quitting Tapering Cigarettes signed up for support prescript ion for stop smoking medication given}} {{Patient not ready to quit Contemplatin g quitting Tapering Cigarettes signed up for support prescript ion for stop smoking medication given}} Goal for follow up visit {{adding exercise regular meals stress management improv ing sleep therapist identifying sponsor}} {{adding exercise regular meals stress management improv ing sleep therapist identifying sponsor}} {{adding exercise regular meals stress management improv ing sleep therapist identifying sponsor}}My Health To Do List {{go to [employer] or call si gn up for marika text 2 quit or other stop smoking marika contact [email or web address].gov}} {{go to [email or web address] or call si gn up for marika text 2 quit or other stop smoking marika contact MobileIron.gov}} {{go to [email or web address] or call si gn up for marika text 2 quit or other stop smoking marika contact MobileIron.gov}} [email or web address] Not available 08/01/2020 11:22:08 11/27/2020 [id number] deciding about using medicines to quit smoking tfurcolo Not available 11/27/2020 14:14:52 Quitting Tobacco : Care Instructions tfurcolo Not available 11/27/2020 14:14:52 well visit, wome n 50 to 65: care instructions tfurcolo Not available 11/27/2020 14:14:52 Counseling done {{Patient not ready to quit* Contemplati ng quitting Tapering Cigarettes signed up for support prescript ion for stop smoking medication given}} tfurcolo Not available 11/27/2020 14:18:36 03/23/2022 [id number] well visit, wome n 50 to 65: care instructions tfurcolo Not available 03/23/2022 14:38:23 up to date with colonoscopy- done 2019 mammogram- due by nov 2022 tfurcolo Not available 03/23/2022 14:47:43 Reason for Referral Plastic Surgeon Referral for Lesion of skin of face small lesion on right face- growing/changing over past 6 mo- needs removal Referring Physician: Dillon Villanueva, Family Medicine, Encounter Date: 05/10/2020 Results Created Date Observation Date Name Description Value Unit Range Abnormal Flag Note LastModifiedBy Organization Detail LastModifiedTime 06/24/19 22 07/01/2021 PAP SMEAR path report [facility] [address] [place] [address] Lab Direc tor: Odalys lopez MD SERVICE CLERK Cytol ogy Repor t Acces bakari #: [id number] FINAL DIAGN OSIS A. PAP SMEAR (SURE PATH) CE: SPECI MEN ADEQU ACY: Satis facto ry for evalu ation ; trans forma tion zone prese nt. INTER PRETA TION: NEGAT KELSIE FOR INTRA EPITH ELIAL LESIO N OR MALIG MELISSA . Cocco bacil li consi stent with shift in shirlene Elect darya ally Dianna d Out By: Odalys lopez MD By his/h er arlyn tolliver above , the patho logis t liste d as ferny grayson the Final Diagn osis certi fies that he/sh e has perso ledy revie wed this case and confi rmed or corre cted the diagn osis. The Pap test is a scree malathi test prima rily for squam ous cance rs and precu rsors and has assoc iated false -nega tive and false -posi tive resul ts. New techn ologi es such as liqui d-bas ed prepa ratio ns may decre ase but will not elimi dionisio all false -nega tive resul ts. Regul ar sampl ing and follo w-up of unexp lg d clini vipul signs and sympt oms are recom jun d to minim ize false negat kelsie resul ts. PROCE DURES /ADDE NDA HPV Testi ng (Requ ested ) Order ed Date: 2021 A. PAP SMEAR (SURE PATH) CE: Human Papil kady Virus TEST Posit kelsie for high- risk Human Papil kady Virus (HR-H PV); addit ional testi ng was necsierra quiñonezy to ident alicia the most virul ent high- risk strai ns. The curre nt sampl e is posit kelsie for high- risk Human Papil kady Virus type Othe r high risk (non- type 16, 18, or 45) probe set (Incl udes 31, 33, 35, 39, 51, 52, 56, 58, 59, 66, 68) by Brenna dennison Oncla rity HR-HP V coy sis. Negat kelsie for high- risk Human Papil kady Virus types 16, 18 and 45 by Becto anthony Dicki nson Oncla rity HR-HP V coy sis. Clini vipul corre latio n is advis ed. This HPV test was perfo rmed at [facility], [address] [facility]. This test has been FDA appro skye for SureP ath cervi vipul cytol ogy speci mens. The accur acy and preci bakari of this test for all other speci men sourc es has been verif ied in the Cytop athol ogy Labor atory of the [facility] and has not been clear ed or appro skye by the U.S. Food and Drug Admin istra tion. Clini vipul corre latio n is advis ed. Alisson ctron icall y Dianna d Out By: Elias Perez on 2021 09:57 CLINI VIPUL HISTO RY Date of Last Menst rual Perio d: Not Provi ded Menst rual Histo ry: Unkno wn Infec tion Histo ry: HPV: OTHER HIGH RISK, 2019 Other Clini vipul Condi tions : Scree malathi Pap Abnor mal PAP: LSIL, 2019 SPECI MEN SOURC E A: PAP SMEAR (SURE PATH) CE Patie nt Name: ALVARO JACOBSON EN : [birth year] (Age: 56) Sex: F 9 Insti tutio n: [facility] Locat ion: [facility] Date of Colle ction : 2021 Date of Acces bakari: 2021 Repor nayeli: 2021 17:36 Resul ts to: Martha Berrios hneid er DIRECTOR ORACLE DATABASE Not Available [facility] (Outpatient) [address] [place] [address], [address], 07/01/2021 18:05:50 07/10/19 22 07/11/2021 CHLAM YDIA/ GC, BAUDILIO N. gonorrhoeae GC NEG negati ve normal Not Available [address], [address], 07/11/2021 14:43:31 07/10/19 22 07/11/2021 CHLAM YDIA/ GC, BAUDILIO C. trachomatis CT NEG negati ve normal Not Available [address], [address], 07/11/2021 14:43:31 07/10/19 22 07/21/2021 BACTE RIAL VAGIN OSIS/ VAGIN ITIS bv, RNA BV POS negati ve abnormal The aptim a BV assay is utili zed for the detec tion of ribos omal RNA from bacte anastasia assoi cated with bacte rial vagin osis( BV), inclu ding Lacto bacil lis (L. gasse ri, L. crisp stus, and L. jense ellie), Gardn erell a vagin keily, and Atopo bium vagin ae. The assay repor ts a quali tativ e resul t for BV and does not repor t resul ts for indiv idual organ isms. Not Available [address], [address], 07/21/2021 12:47:22 07/10/19 22 07/21/2021 BACTE RIAL VAGIN OSIS/ VAGIN ITIS tahira species group (C. albicans, C. tropicalis, C. parapsilosis ), RNA C. SPP NEG negati ve normal Not Available [address], [address], 07/21/2021 12:47:22 07/10/19 22 07/21/2021 BACTE RIAL VAGIN OSIS/ VAGIN ITIS tahira glabrata, RNA C. GLA NEG negati ve normal Not Available [address], [address], 07/21/2021 12:47:22 07/10/19 22 07/21/2021 BACTE RIAL VAGIN OSIS/ VAGIN ITIS trichomonas vaginalis, RNA TRICH NEG negati ve normal Not Available [address], [address], 07/21/2021 12:47:22 03/23/19 23 03/23/2022 CBC WBC 8.20 K/? ? ?L 3.98-1 0.04 Not Available [address], [address], 03/23/2022 16:53:09 03/23/19 23 03/23/2022 CBC RBC 4.12 M/? ? ?L 3.93-5 .22 Not Available [address], [address], 03/23/2022 16:53:09 03/23/19 23 03/23/2022 CBC HGB 14.0 g/dL 11.2-1 5.7 Not Available [address], [address], 03/23/2022 16:53:09 03/23/19 23 03/23/2022 CBC HCT 40.3 % 34.1-4 4.9 Not Available [address], [address], 03/23/2022 16:53:09 03/23/19 23 03/23/2022 CBC MCV 97.8 fL 79.4-9 4.8 high Not Available [address], [address], 03/23/2022 16:53:09 03/23/19 23 03/23/2022 CBC MCH 34.0 pg 25.6-3 2.2 high Not Available [address], [address], 03/23/2022 16:53:09 03/23/19 23 03/23/2022 CBC MCHC 34.7 g/dL 32.2-3 5.5 Not Available [address], [address], 03/23/2022 16:53:09 03/23/19 23 03/23/2022 CBC plt 208 K/? ? ?L 182-36 9 Not Available [address], [address], 03/23/2022 16:53:09 03/23/19 23 03/23/2022 CBC MPV 10.9 fL 9.4-12 .3 Not Available [address], [address], 03/23/2022 16:53:09 03/23/19 23 03/23/2022 CBC neut% 69.7 % 34.0-7 1.1 Not Available [address], [address], 03/23/2022 16:53:09 03/23/19 23 03/23/2022 CBC neut# 5.71 1.56-6 .13 Not Available [address], [address], 03/23/2022 16:53:09 03/23/19 23 03/23/2022 CBC lymph % 23.2 % 19.3-5 1.7 Not Available [address], [address], 03/23/2022 16:53:09 03/23/19 23 03/23/2022 CBC lymph # 1.90 K/? ? ?L 1.18-3 .74 Not Available [address], [address], 03/23/2022 16:53:09 03/23/19 23 03/23/2022 CBC mono% 5.2 % 4.7-12 .5 Not Available [address], [address], 03/23/2022 16:53:09 03/23/19 23 03/23/2022 CBC mono# 0.43 0.24-0 .56 Not Available [address], [address], 03/23/2022 16:53:09 03/23/19 23 03/23/2022 CBC eo% 1.2 % 0.7-5. 8 Not Available [address], [address], 03/23/2022 16:53:09 03/23/19 23 03/23/2022 CBC eo# 0.10 0.04-0 .36 Not Available [address], [address], 03/23/2022 16:53:09 03/23/19 23 03/23/2022 CBC baso% 0.5 % 0.1-1. 2 Not Available [address], [address], 03/23/2022 16:53:09 03/23/19 23 03/23/2022 CBC baso# 0.04 0.00-0 .08 Not Available [address], [address], 03/23/2022 16:53:09 03/23/19 23 03/23/2022 CBC RDW-CV 11.7 % 11.7-1 4.4 Not Available [address], [address], 03/23/2022 16:53:09 03/23/19 23 03/23/2022 CBC Ig% 0.200 % 0.000- 1.500 Ig % >0.5 Indic ates possi ble Left Shift Not Available [address], [address], 03/23/2022 16:53:09 03/23/19 23 03/23/2022 CBC Ig# 0.020 0.000- 0.093 Not Available [address], [address], 03/23/2022 16:53:09 03/23/19 23 03/23/2022 CBC NRBC% 0.0 % 0.0-0. 2 Not Available [address], [address], 03/23/2022 16:53:09 03/23/19 23 03/23/2022 CBC NRBC# 0.000 0.000- 0.012 Not Available [address], [address], 03/23/2022 16:53:09 03/23/19 23 03/24/2022 TSH TSH 1.21 uIU/m L 0.50-6 .00 The [facility] Endoc rinol ogy and [facility] Thyro id Assoc iatio n recom mend goal TSH value s betwe en 0.4-4 .0 mIU/m L. Not Available [address], [address], 03/24/2022 11:08:12 03/23/19 23 03/24/2022 COMP. METAB OLIC PANEL glucose 117 mg/dL 70-100 high Not Available [address], [address], 03/24/2022 16:12:57 03/23/19 23 03/24/2022 COMP. METAB OLIC PANEL BUN 12 mg/dL 7-18 Not Available [address], [address], 03/24/2022 16:12:57 03/23/19 23 03/24/2022 COMP. METAB OLIC PANEL creatinine 0.8 mg/dL 0.8-1. 3 Not Available [address], [address], 03/24/2022 16:12:57 03/23/19 23 03/24/2022 COMP. METAB OLIC PANEL B/C 15.0 ratio Not Available [address], [address], 03/24/2022 16:12:57 03/23/19 23 03/24/2022 COMP. METAB OLIC PANEL GFR >=60ML /MIN mL/mi n normal >=60m L/min - Erica l or midly reduc ed <60mL /min- Decre ased kidne y funct ion <15mL /min - Kidne y failu re [facility] calcu lates estim ated Glome rular Filtr ation Rate (eGFR ) using the Chron ic Kidne y Disea se Epide miolo gy Colla borat ion (CKD- EPI) Equat ion (Mike r et. al 2020) as recom jun d by the Natio nal Kidne y Found ation . eGFR is based on age, serum creat inine , and sex. CKD-E PI does not calcu late eGFR by race, does not apply to child lizbeth (age <18 years ), and shoul d not be used in pregn mauricio. Not Available [address], [address], 03/24/2022 16:12:57 03/23/19 23 03/24/2022 COMP. METAB OLIC PANEL sodium 140 mmol/ L 136-14 5 Not Available [address], [address], 03/24/2022 16:12:57 03/23/19 23 03/24/2022 COMP. METAB OLIC PANEL potassium 4.8 mmol/ L 3.5-5. 1 Not Available [address], [address], 03/24/2022 16:12:57 03/23/19 23 03/24/2022 COMP. METAB OLIC PANEL chloride 102 mmol/ L 96-107 Not Available [address], [address], 03/24/2022 16:12:57 03/23/19 23 03/24/2022 COMP. METAB OLIC PANEL anion gap 9.9 5.0-15 .0 Not Available [address], [address], 03/24/2022 16:12:57 03/23/19 23 03/24/2022 COMP. METAB OLIC PANEL CO2 28 mmol/ L 21-32 Not Available [address], [address], 03/24/2022 16:12:57 03/23/19 23 03/24/2022 COMP. METAB OLIC PANEL calcium 9.4 mg/dL 8.5-10 .3 Not Available [address], [address], 03/24/2022 16:12:57 03/23/19 23 03/24/2022 COMP. METAB OLIC PANEL total protein 7.6 g/dL 6.4-8. 2 Not Available [address], [address], 03/24/2022 16:12:57 03/23/19 23 03/24/2022 COMP. METAB OLIC PANEL albumin 4.6 g/dL 3.4-5. 0 Not Available [address], [address], 03/24/2022 16:12:57 03/23/19 23 03/24/2022 COMP. METAB OLIC PANEL globulin 3.0 g/dL Not Available [address], [address], 03/24/2022 16:12:57 03/23/19 23 03/24/2022 COMP. METAB OLIC PANEL A/G 1.5 ratio 0.8-2. 0 Not Available [address], [address], 03/24/2022 16:12:57 03/23/19 23 03/24/2022 COMP. METAB OLIC PANEL total bilirubin 0.80 mg/dL 0.00-1 .00 Not Available [address], [address], 03/24/2022 16:12:57 03/23/19 23 03/24/2022 COMP. METAB OLIC PANEL AST 26 U/L 0-37 Not Available [address], [address], 03/24/2022 16:12:57 03/23/19 23 03/24/2022 COMP. METAB OLIC PANEL ALT 28 U/L 6-63 Not Available [address], [address], 03/24/2022 16:12:57 03/23/19 23 03/24/2022 COMP. METAB OLIC PANEL alk. phos. 77 U/L 50-136 Not Available [address], [address], 03/24/2022 16:12:57 03/23/19 23 03/24/2022 GLIAD IN (DEAM IDATE D) AB (IGA) gliadin (deamidated) Ab (IgA) 3.4 U/mL normal Value Inter preta tion ----- ----- ----- ---- <15.0 Antib merly not detec nayeli > or = 15.0 Antib merly detec nayeli Not Available [facility] [address], [address], 03/24/2022 23:53:50 03/23/19 23 03/24/2022 GLIAD IN (DEAM IDATE D) AB (IGG) gliadin (deamidated) Ab (IgG) <1.0 U/mL normal Value Inter preta tion ----- ----- ----- ---- <15.0 Antib merly not detec nayeli > or = 15.0 Antib merly detec nayeli Not Available [facility] [address], [address], 03/24/2022 23:53:52 03/23/19 23 03/24/2022 TISSU E TRANS GLUTA TERESA E AB, IGA tissue transglutami nase Ab, IgA <1.0 U/mL normal Value Inter preta tion ----- ----- ----- ---- <15.0 Antib merly not detec nayeli > or = 15.0 Antib merly detec nayeli Not Available [facility] [address], [address], 03/24/2022 23:53:54 03/23/19 23 03/27/2022 PAP TEST path report [facility] [address] [place] [address] Lab Direc tor: Odalys lopez MD SERVICE CLERK Cytol ogy Repor t Acces bakari #: [id number] FINAL DIAGN OSIS A. PAP SMEAR (SURE PATH) CE: SPECI MEN ADEQU ACY: Satis facto ry for evalu ation ; trans forma tion zone prese nt. INTER PRETA TION: NEGAT KELSIE FOR INTRA EPITH ELIAL LESIO N OR MALIG MELISSA . Elect darya michaellouis Dianna d Out By: Ana Maria Sharpe , CT( CP) Dimas blair, CT( CP) The Pap test is a scree malathi test prima rily for squam ous cance rs and precu rsors and has assoc iated false -nega tive and false -posi tive resul ts. New techn ologi es such as liqui d-bas ed prepa ratio ns may decre ase but will not elimi dionisio all false -nega tive resul ts. Regul ar sampl ing and follo w-up of unexp lg d clini vipul signs and sympt oms are recom jun d to minim ize false negat kelsie resul ts. PROCE DURES /ADDE NDA HPV Testi ng (Requ ested ) Order ed Date: 2022 A. PAP SMEAR (SURE PATH) CE: Human Papil kady Virus Test NEGAT KELSIE for high- risk Human Papil kady Virus types 16, 18, 45 and the Othe r high risk probe set (Incl udes 31, 33, 35, 39, 51, 52, 56, 58, 59, 66, 68) Note: Testi ng perfo rmed by Brenna parks HR-HP V coy sis. Clini vipul corre latio n is advis ed. This HPV test was perfo rmed at [facility], [address] [facility]. This test has been FDA appro skye for SureP ath cervi vipul cytol ogy speci mens. The accur acy and preci bakari of this test for all other speci men sourc es has been verif ied in the Cytop athol ogy Labor atory of the [facility] and has not been clear ed or appro skye by the U.S. Food and Drug Admin istra tion. Clini vipul corre latio n is advis ed. Alisson ctron icall y Dianna d Out By: Elias Perez on 2022 12:01 CLINI VIPUL HISTO RY Date of Last Menst rual Perio d: Not Provi ded Menst rual Histo ry: Unkno wn Infec tion Histo ry: HPV: OTHER HIGH RISK, 2021 Other Clini vipul Condi tions : Scree malathi Pap SPECI MEN SOURC E A: PAP SMEAR (SURE PATH) CE Patie nt Name: ALVARO JACOBSON EN : [birth year] (Age: 57) Sex: F 9 Insti tutio n: [facility] Locat ion: [facility] Date of Colle ction : 2022 Date of Acces bakari: 2022 Repor nayeli: 2022 11:10 Resul ts to: Dillon Addison lo DO, BA Not Available [facility] (Outpatient) [address] [place], [address], 03/27/2022 11:12:17 12/01/19 21 11/27/2020 MAMMO , scree malathi, tomos ynthe sis, bilat eral OBSERV ATION: CLINIC AL HISTOR Y: Screen ing. TECHNI QUE: 3D mammog mik (tomos ynthes is) and 2D mammog mik (C-vie w) images are genera nayeli. Images review ed with a CAD system . COMPAR LINO: Prior mammog meagan throug h 08/07/19 17. FINDIN GS: The breast parenc hyma is compos ed of scatte red areas of fibrog landul ar densit y. There are no suspic ious masses . There are no suspic ious microc alcifi cation s. The breast kaz ecture is normal . There has been no signif icant change compar ed to the prior study. IMPRES BAKARI: No mammog raphic eviden ce of malign mauricio. Annual mammog raphic screen ing recomm ended. This facili ty uses a remind er system with a target date for the next mammog agatha. Breast densit y: B. There are scatte red areas of fibrog landul ar densit y. BIRADS : 1, NEGATI VE Electr onical ly signed Readin g Physic vicky: Julieta Deleon ms [facility] (Imaging) [address], [place], [address], 12/05/2020 17:18:21 06/19/19 23 04/05/2022 CT, brain , w/o contr ast No observ ation record ed. [facility] [address], [place], [address], 06/19/2022 08:36:30 07/15/19 23 11/27/2020 bi mammo gram outsi de (no inter preta tion) This study is for PACS storag e only and not for interp retati on. Final result /-/-/- This study was perfor med and interp reted outsid e of Natasha Beebe son It has been import ed to the [facility] Tactilize system for review , based upon servando gurrola provid ed by the source instit hector hurtprkarey [facility] [address], [place], [address], 07/14/2022 15:25:18 07/31/19 23 07/29/2022 MAMMO , scree malathi, tomos ynthe sis, bilat eral, w/ CAD STUDY: Bilate ral screen ing mammog mik with tomosy nthesi s and CAD TECHNI QUE: Bilate ral full-f ield digita l screen ing mammog mik is obtain ed and read in conjun ction with comput er-aid ed detect ion. Tomosy nthesi s as well as 2-D C view imagin g were obtain ed. COMPAR LINO: Compar lino made to multip le prior studie s dating back to May 2013. BILATE RAL BREAST S: No new masses , suspic ious calcif icatio ns or other abnorm alitie s are seen. No signif icant interv al change . IMPRES BAKARI: BILATE RAL BREAST S: Benign , no eviden ce of malign mauricio. Recomm end bilate ral annual screen ing mammog mik in 12 months . DENSIT Y: There are scatte red fibrog landul ar densit ies. Bi-RAD S: BI-RAD S CATEGO RY: 2 - Benign findin g. RIGHT RECOMM ENDATI ON DUE DATE: 12 Months Recomm endati on: Right Mammog mik Screen ing LEFT RECOMM ENDATI ON DUE DATE: 12 Months Recomm endati on: Left Mammog mik Screen ing Electr onical ly Signed by: Mohamud robledo on 023 12:43 PM Interp reted by: Mohamud Arana MD Signed by: Mohamud Arana MD 3 Final result Routin e screen ing Last mm 2020 B-1 Id verifi ed by catherine PADRON DILLON L FURCOL O DILLON L FURCOL O [facility] [address] [place] [address], [id number], 07/30/2022 12:46:43 07/31/19 23 07/29/2022 MAMMO , scree malathi No observ ation record ed. [facility] [address] [place] [address], [id number], 07/31/2022 12:42:10 Result Notes None recorded. Problems Name Problem SNOMED Code Status Onset Date Resolution Date Notes Provider Name and Address Organization Details Recorded Time Breast lump 46365920 [place], [address], [facility] 6 08:08:16 Abdomina l pain 53862804 Completed 02/24/2011 [place], [address], [facility] 6 08:08:16 Divertic ulitis 886364468 Active 2016 recurren t,GI advises in future rotate antibiot ics between bactrim, cipro, amox. Do not always use levaquin . Martha jrodan NP [address] [place], [address], [facility] 0 15:32:31 Abnormal cervical Papanico laou smear 876947408 Active 2018 lgsil, negative hpv, repeat pap 09/2019 Dillon Furcolo D.O. 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 Pt asymptom atic, previous work in [employer]. Possible is carrier, possible is not, not high index of suspicio n but no other way to document this in hx. ALANA REYES MD [address] [place] [address], [phone], [facility] 1 13:58:52 Tobacco user 630078980 Active 2022 Dillon Furcolo D.O. [address] [place], [address], [facility] 3 14:03:28 Problem Notes None recorded. Procedures Surgical History Date Name Laterality Status Provider Name and Address Organization Details Recorded Time 3 Smoking cessation counseling completed Dillon Furcolo D.O. [address] [place] [address], [phone], [facility] 03/23/2022 14:47:52 1 Smoking cessation counseling completed Dillon Furcolo D.O. [address] [place] [address], [phone], [facility] 11/27/2020 14:21:47 1 Carbon Monoxide Testing completed Reanna Jesus MA [facility] 11/27/2020 13:43:30 1 COPD Screening Questions completed Reanna Jesus MA [facility] 11/27/2020 13:43:53 1 Smoking cessation counseling completed Ashley Mccullough LPN [facility] 08/01/2020 11:22:08 1 Carbon Monoxide Testing completed Ashley Mccullough LPN [facility] 08/01/2020 11:22:08 1 Smoking cessation counseling completed Aditi Haas [facility] 05/10/2020 11:37:59 1 Carbon Monoxide Testing completed Aditi Haas MA [facility] 05/10/2020 11:37:59 0 Smoking cessation counseling completed Sonia Terry CMA [facility] 11/29/2019 09:05:17 0 Smoking cessation counseling completed Bianka Day [facility] 11/23/2019 10:32:13 0 Carbon Monoxide Testing completed Bianka Day [facility] 11/23/2019 10:32:13 0 Smoking cessation counseling completed Reanna Jesus MA [facility] 04/07/2019 11:03:08 9 Smoking cessation counseling completed Betzy Brown MA [facility] 09/16/2018 10:46:12 9 Carbon Monoxide Testing completed Betzy Brown MA [facility] 09/16/2018 10:46:12 8 Smoking cessation counseling completed Reanna Jesus MA [facility] 09/14/2017 09:46:07 8 Carbon Monoxide Testing completed Reanna Jesus MA [facility] 09/14/2017 09:46:07 7 Smoking cessation counseling completed Reanna Jesus MA [facility] 09/04/2016 15:15:12 7 Carbon Monoxide Testing completed Reanna Jesus MA [facility] 09/04/2016 15:15:12 6 Smoking cessation counseling completed Reanna Jesus MA [facility] 03/21/2015 08:05:21 4 Smoking cessation counseling completed Chloé Stringer LPN [facility] 05/24/2013 15:44:05 2 Smoking cessation counseling completed Reanna Stinson [facility] 03/04/2012 15:23:23 1 Smoking cessation counseling completed Reanna Stinson [facility] 03/03/2011 15:27:26 Imaging Results Imaging Date Name Status [facility]Modified by [facility] Details LastModified Time 11/27/2020 MAMMO, screening, tomosynthesis, bilateral completed [facility] (Imaging) [address], [place], [address], 12/05/2020 17:18:21 04/05/2022 CT, brain, w/o contrast completed [facility] [address] [place] [address], [place], [address], 06/19/2022 08:36:30 11/27/2020 bi mammogram outside (no interpretation ) completed [facility] [address] [place] [address], [address], 07/14/2022 15:25:18 07/29/2022 MAMMO, screening, tomosynthesis, bilateral, w/ CAD completed [facility] [address] [place], [address], 07/30/2022 12:46:43 07/29/2022 MAMMO, screening completed [facility] [address] [place], [address], 07/31/2022 12:42:10 Procedure Notes None recorded. Medical Equipment None Reported. Allergies No known drug allergies Medications Name Sig Start Date Stop Date Status Note LastModified by Organization Details LastModified Time Mirena 21 mcg/24 hr (up to 8 years) 52 mg intrauteri ne device Take 1 device every day by intraute rine route. 09/16 completed Not Available Not Available Not Available venlafaxin e ER 37.5 mg capsule,ex tended release 24 hr TAKE 1 CAPSULE BY MOUTH EVERY DAY 09/16 completed Not Available Not Available Not Available prednisone 10 mg tablet TAKE 6TABS BY MOUTH X2DAYS, 4TABS X2DAYS, 2TABS X2DAYS, THEN 1 TAB 2 TIMES A DAY X8DAYS 09/04 completed Not Available Not Available Not Available doxycyclin e hyclate 100 mg capsule TAKE ONE CAPSULE BY MOUTH TWICE A DAY 03/23 completed Not Available Not Available Not Available nicotine 14 mg/24 hr daily transderma l patch APPLY 1 PATCH TO SKIN ONCE DAILY 11/23 completed pt states no longer taking Not Available Not Available Not Available nicotine (polacrile x) 2 mg gum Chew 1 piece of gum every 2 hours by oral route. 04/07 completed Not Available Not Available Not Available Keflex 500 mg capsule Take 1 capsule every 6 hours by oral route for 5 days. 11/23 completed 04/06 Per Grecia BLAIR note Not Available Not Available Not Available metronidaz ole 0.75 % (37.5 mg/5 gram) vaginal gel Insert 1 applicat orful every day by vaginal route in the evening for 5 days. 05/29 completed Not Available Not Available Not Available metronidaz ole 500 mg tablet TAKE ONE TABLET BY MOUTH EVERY 12 HOURS FOR 7 DAYS 03/23 completed Not Available Not Available Not Available lorazepam 2 mg tablet TAKE 1 TABLET BY MOUTH EVERY DAY NEEDED 11/23 completed Not Available Not Available Not Available erythromyc in 5 mg/gram (0.5 %) eye ointment APPLY A 1CM RIBBON TO THE LOWER CONUNCTI AUBREY SAC(S) OF AFFECTED EYES THREE TIMES DAILY DIRECTED 11/22 completed Not Available Not Available Not Available nicotine 21 mg/24 hr daily transderma l patch APPLY 1 PATCH TOPICALL Y EVERY DAY 04/07 completed Not Available Not Available Not Available levofloxac in 500 mg tablet TAKE 1 TABLET BY MOUTH EVERY DAY FOR 7 DAYS 11/23 completed Not Available Not Available Not Available naproxen 500 mg tablet active Not Available Not Available Not Available amoxicilli n 875 mg-potassi um clavulanat e 125 mg tablet TAKE 1 TABLET BY MOUTH TWICE A DAY 03/23 completed Not Available Not Available Not Available azithromyc in 500 mg tablet TAKE 2 TABLETS BY MOUTH SINGLE DOSE ASDIRECT ED 05/10 completed Not Available Not Available Not Available Vitamin D3 25 mcg (1,000 unit) tablet Take 1 tablet every day by oral route. 09/14 completed Not Available Not Available Not Available iron active Not Available Not Availa ble Not Available multivitam in daily 11/23 completed Not Available Not Available Not Available Calcium 500 + D active Not Available Not Available Not Available vitamin B comp no.3-folic acid 1 mg-vit C 60 mg-biotin 300 mcg tablet active Not Available Not Available Not Available GaviLyte-N 420 gram oral solution 05/10 completed Not Available Not Available Not Available Probiotic daily 11/23 completed Not Available Not Available Not Available Osteo Bi-Flex daily 06/23 completed Not Available Not Available Not Available turmeric 11/23 completed Not Available Not Available Not Available Afluria Qd 2018- (36 mos up)(PF)60 mcg (15 mcg x4)/0.5 mL IM syringe ADM 0.5ML IM UTD 04/07 completed Not Available Not Available Not Available Vitals Date Recorded Body height Body mass index (BMI) Body weight Provider Name and Address Organization Details Last Updated DateTime 08/01/2020 170.18 cm 20.5 kg/m2 47588.6 g Ashley Mccullough LPN [facility] 08/01/2020 11:23:44 Date Recorded Body height Body mass index (BMI) Body weight Heart rate Systolic blood pressure Diastolic blood pressure Provider Name and Address Organization Details Last Updated DateTime 1 170.18 cm 20.8 kg/m2 59114.7 9 g 78 /min 130 mm[Hg] 76 mm[Hg] Reanna Jesus [facility] 1 13:46:29 Date Recorded Body height Body mass index (BMI) Body weight Heart rate Oxygen saturation Oxygen saturation in Arterial blood by Pulse oximetry Systolic blood pressure Diastolic blood pressure Provider Name and Address Organization Details Last Updated DateTime 2 170.18 cm 20 kg/m2 38745.8 2 g 99 /min 97 % 97 % 141 mm[Hg] 82 mm[Hg] Shannon Parsons [facility] 2 12:26:18 Date Recorded Body height Body mass index (BMI) Body weight Heart rate Oxygen saturation Oxygen saturation in Arterial blood by Pulse oximetry Systolic blood pressure Diastolic blood pressure Provider Name and Address Organization Details Last Updated DateTime 3 170.18 cm 19.4 kg/m2 76461.4 5 g 97 /min 98 % 98 % 124 mm[Hg] 80 mm[Hg] YESIKA Juarez [facility] 13:49:38 Date Recorded Systolic blood pressure Diastolic blood pressure Provider Name and Address Organization Details Last Updated DateTime 06/24/2022 102 mm[Hg] 64 mm[Hg] Ashley Mccullough LPN [facility] 06/24/2022 09:59:17 Social History Question Answer Notes LastModified by Organization Details LastModified Time Tobacco Smoking Status Current Every Day Smoker Pt is only smoking pack a cigarettes a month pt has switched to vaping 03/23/22MV YESIKA Juarez, [facility] 03/23/2022 13:55:57 Do You Have An Advance Directive? Yes Information not available 03/21/2015 What Is Your Level Of Alcohol Consumption? Moderate Information not available 11/27/2020 Do You Wear A Helmet When Biking? Yes Information not available 11/27/2020 What Is Your Level Of Caffeine Consumption? Moderate 2 Cups Per Day Information not available 12/11/2009 How Much Tobacco Do You Chew? None Information not available 01/22/2011 Are You Currently Employed? Yes Information not available 03/23/2022 What Type Of Diet Are You Following? REGULAR Low-fat, High Fiber, Healthy, Daily And Veggies, Poultry Information not available 12/11/2009 Do You Or Have You Ever Used E-cigarettes Or Vape? Current User Of Electronic Cigarettes [email or web address] Information not available 03/23/2022 Education 2 Year College Information not available 01/22/2011 What Is The Highest Grade Or Level Of School You Have Completed Or The Highest Degree You Have Received? 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 Yes [email or web address] Information not available 03/23/2022 How Many Days In The Past Year Have You Had A Heavy Drinking Consumption (4+ Female, 5+ Male)? 20 [email or web address] Information not available 08/01/2020 Are There Any Guns Present In Your Home? No Information not available 11/27/2020 Do You Use Insect Repellent Routinely? No [email or web address] Information not available 03/23/2022 Live Alone Or With Others? With Others [email or web address].[email or web address]., 14 Y.o. Sons Information not available 12/11/2009 Patient Has Health Care Proxy Signed And In Chart No 11/27/20 Form Given SR [email or web address] Information not available 03/02/2018 Marital Status 2008-very Contentious Information not available 12/11/2009 What Was The Date Of Your Most Recent Tobacco Screening? 03/23/2022 [email or web address] Information not available 03/23/2022 How Many Children Do You Have? 2 Information not available 01/22/2011 What Is Your Relationship Status? Single Information not available 03/23/2022 Do You Use Your Seat Belt Or Car Seat Routinely? Yes Information not available 11/27/2020 Seat Belts Used Routinely Yes Information not available 01/22/2011 Smoke Alarm In Home Yes Information not available 01/22/2011 Do You Have Smoke And Carbon Monoxide Detectors In Your Home? Yes Information not available 11/27/2020 Are You Passively Exposed To Smoke? No [email or web address] Information not available 03/23/2022 Do You Or Have You Ever Used Smokeless Tobacco? Never Used Smokeless Tobacco Information not available 04/07/2019 General Stress Level High Information not available 01/22/2011 Do You Use Sunscreen Routinely? Yes Information not available 01/22/2011 How Many Years Have You Smoked Tobacco? 0 Information not available 04/07/2019 Sex: Unknown Functional Status Question Answer Note LastModified by Organizat ion Details LastModified Time What is your exercise level? Occasional works out at the gym 03/23/22MV [email or web address] Information not available 03/23/2022 Mental Status None recorded. Family History Relationship Description Onset Age of this Age Resolved Age Notes LastModified by Organization Details LastModified Time Mother Diverticular disease previo usly record ed as Divert iculos is [email or web address] Not available 03/21/2015 08:08:27 Maternal Grandmother Malignant neoplastic disease uterin e (previ ously record ed as Cancer ) pkeough Not available 03/21/2015 08:08:27 Maternal Grandmother Leukemia (morphologic abnormality) 60 previo usly record ed as Cancer - Leukem ia [email or web address] Not available 03/23/2022 13:44:24 Maternal Uncle Leukemia (morphologic abnormality) previo usly record ed as Cancer - Leukem ia pkeough Not available 03/21/2015 08:08:27 Maternal Uncle Tongue carcinoma 55 smoker and drinke r [email or web address] Not available 03/23/2022 13:44:24 Brother Diverticular disease [email or web address] Not available 2022 14:27:41 Notes:No known hx of father. No known hx of DM, CAD, CVA Medical History Condition Response Anxiety Y Diverticulitis Y Diverticulosis Y Gynecological History Statement/Question Response Menses Monthly N HPV Y History of Abnormal Pap Y Current Control Method None Obstetrics History GPAL:G 0 P 0 0 0 0 Immunizations Vaccine Type Date Status Note Provider Nam e and Address Organization Details Recorded Time Td(adult) unspecified formulation 3 completed [facility] 05:22:41 Influenza, split virus, trivalent, preservative 5 completed Janie pham [facility] 03/23/2022 13:41:59 Tdap 7 completed DEBO Andrea [facility] 09/14/2017 09:46:42 Influenza, split virus, quadrivalent, preservative 8 completed Janie pham [facility] 03/23/2022 13:41:59 Influenza, split virus, quadrivalent, preservative 9 completed Janie pham [facility] 03/23/2022 13:41:58 Influenza, split virus, quadrivalent, PF 1 completed Dillon Villanueva D.O. [address] [place] [address], [phone], [facility] 11/27/2020 14:14:52 COVID-19, mRNA, LNP-S, PF, 30 mcg/0.3 mL dose 1 completed Ashley Mccullough LPN null, [facility] 08/01/2020 11:30:52 COVID-19, mRNA, LNP-S, PF, 30 mcg/0.3 mL dose 1 completed MIGUE Spivey, [facility] 08/01/2020 11:31:08 Past Encounters Encounter ID Performer Location Encounter Start Date Encounter Closed Date Diagnosis/Indication Diagnosis SNOMED-CT Code Diagnosis ICD10 Code Diagnosis Note [id number] CESAR Martins, [facility] [place] [address] [place] [address] 12/11/2009 14:38:43 12/11/2009 15:59:21 [id number] CESAR Martins, [facility] [place] [address] [place] [address] 02/10/2010 16:03:36 02/10/2010 16:47:12 [id number] [facility] , [address] [address] 05/05/2010 15:05:13 05/07/2010 09:25:02 [id number] CESAR Martins, [facility], OFFICE [address] [place] [address] 05/24/2010 12:31:53 05/24/2010 14:40:37 [id number] [facility] , [address] [address] 05/27/2010 15:49:30 05/28/2010 10:49:24 [id number] CESAR Martins, [facility] [place] [address] [place] [address] 12/30/2010 15:50:26 12/30/2010 16:28:25 [id number] CESAR Martins, [facility] [place] [address] [place] [address] 03/03/2011 15:11:58 03/03/2011 15:56:21 [id number] CESAR Martins, [facility] [place] [address] [place] [address] 04/02/2011 09:11:41 04/02/2011 09:50:44 [id number] Dillon SALMON, [facility], OFFICE [address] [place] [address] 03/04/2012 15:08:58 03/04/2012 15:37:41 [id number] Arya Hampton MD Radiology , [address] [address] 03/24/2012 14:27:39 03/28/2012 14:42:49 [id number] Porter Farooq MD Radiology , [address] [address] 04/08/2012 14:22:26 04/11/2012 10:06:12 [id number] Porter Farooq MD Radiology , [address] [address] 04/08/2012 14:50:31 04/11/2012 10:08:24 [id number] Dillon Villanueva D.O. [facility], OFFICE [address] [place] [address] 04/26/2012 07:57:57 04/26/2012 08:20:26 [id number] Dillon Villanueva D.O. [facility], OFFICE [address] [place] [address] 05/24/2013 15:07:42 05/24/2013 16:17:44 Adult health examination 984712556 see Risk Assessment and Lifestyle Change Counseling section above Counseling 741631704 Tobacco user 598091171 Abnormal f indings on diagnostic imaging of breast 005031972 Has appt tomorrow at [facility] for additional mammo views Seeing DR. Sahni to discuss possible bx Diverticular disease 217140079 Had flare a few weeks ago Resolved with levaquin Increased frequency of urination 534709450 UA normal Fatigue 81087999 Will ch nakul labs below Bacterial vaginosis 764082858 wet prep + whiff, pcp 5.0, clue cells Tx with metrogel x 5 days Encoaurged to c/w probiotic [id number] Dillon Villanueva D.O. [facility], OFFICE [address] [place] [address] 06/12/2014 14:52:46 06/12/2014 15:39:29 Screening for malignant neoplasm of cervix 838683134 Screening mammography 46922175 Adult heal th examination 239715821 see Risk Assessment and Lifestyle Change Counseling section above HM: Due mammo Pap today Declines Tdap. Diverticular disease 472098732 Stable. 2 x year. [id number] Dillon Villanueva D.O. , [facility] [place] [address] [place] [address] 03/21/2015 07:56:20 03/22/2015 10:11:46 Screening for disorder 322832585 Z11.59 Nicotine dependence 5629 4008 Z87.891 Tobacco user 318958516 Z 72.0 no counseling done Headache 21664793 R51 ? focal neuritis advised return to massage f/u prn [id number] Rosanna Padron NP , [facility] [address] [place] [address] 07/29/2015 15:05:17 07/29/2015 15:32:04 Adult health examination 697819410 Z00.00 Mammo 07/21 Pap 06/2014 Declines Adace Fatigue 80373874 R53.83 will check labs below Nicotine dependence 5629 4008 Z87.891 agrees to start nicoderm patchwill start at 14 mcg dailyrevie wed how to take [id number] Dillon Villanueva D.O. , [facility] [place] [address] [place] [address] 09/04/2016 15:02:45 09/04/2016 15:31:50 Adult health examination 882335834 Z00.00 see Risk Assessment and Lifestyle Change Counseling section aboveHM: Pap todayMammo 08/2016 Counseling 989395337 Z71 .9 Screening for malignant neoplasm of cervix 129672078 Z12.4 Cigarette smoker 3122141 7 F17.210 Tobacco user 163375561 Z 72.0 CO 17smoking 1-2 ppdtried patch before with success Diverticulitis 434568529 K57.92 no recent re-occurre ncecheck labs [id number] Dillon Villanueva D.O. , [facility] [place] [address] [place] [address] 09/14/2017 09:35:05 09/14/2017 17:39:46 Diverticulitis 890099658 K57.92 recent re-occurre ncetx with levaquinta yanci apple cider vinegar which seems to help Cigarette smoker 3258547 7 F17.210 smokingwan ts to quitwill work on reducing, stopping with start antidepres juani Tobacco user 841237778 Z 72.0 smoking wants to quit will work on reducing, stopping with start antidepres juani Adult heal th examination 428840256 Z00.00 see Risk Assessment and Lifestyle Change Counseling section aboveHM: Pap 08/2016Mamm o 08/2016 Depression screening 171 475718 Z13.89 12 out of 27mood down, anxiety has been upnot sleeping wellprevio usly on lexapro Perimenopa usal disorder 495577905 N95.9 hot flashes. labile moodwill start effexor XR 37.5 mgwill let me know how she responds in next few weeksmay need to increase to 75 mg Removal of intrauterine device 49012143 Z30.432 iud removed successful ly [id number] Dillon Villanueva D.O. , [facility] [place] [address] [place] [address] 09/16/2018 10:43:42 09/16/2018 11:34:02 Adult health examination 372613066 Z00.00 Counseling 536252850 Z71 .9 Depression screening 171 533263 Z13.89 depression screening tool administer ed, entered into emr, scored and discussed, time greater than 7.5 minutes Cigarette smoker 0102857 7 F17.210 Tobacco user 247032699 Z 72.0 Insomnia 608867558 G47.0 0 Screening for malignant neoplasm of cervix 301223109 Z12.4 [id number] Dillon Rooney.O. , [facility] [place] [address] [place] [address] 04/07/2019 10:50:09 04/07/2019 13:58:56 Cigarette smoker 55907426 F17.210 no counseling done today Tobacco user 974210839 Z 72.0 no counseling done today Hordeolum externum of lower eyelid 665003012 H00.019 L lower lid? of early cellulitis will tx with Keflex 500 mg tid x 3-5 dayserythr omycin ointment direct into eye lidwill f/u if sxs persists, worsenDr. Rich also examined the pt [id number] Dillon PhillipsOFeli , [facility] [place] [address] [place] [address] 11/23/2019 10:18:05 11/27/2019 15:57:14 Vaginitis 85927600 N76.0 having odor and discomfort started about 6 weeks after her last sexual partnernot currently sexually activeh/o BV back in 2013- but patient does nto remember her symtpoms back thenrecomm end IN PERSON exam for pap and eval for yeast/BV/G C/chlamydi a Abnormal c ervical Papanicolaou smear 709320013 R87.619 recommend doing PAP when comes in for vaginal/gy n exam Tobacco user 448249456 Z 72.0 [id number] Dillon Villanueva D.O. , [facility] [place] [address] [place] [address] 11/29/2019 08:58:25 11/30/2019 14:50:43 Vaginitis 81427460 N76.0 exam unremarkab le with scant yellow discharge, no odor, normal ph of 5.9submitt ed specimen for bacterial and fungal testingam tx for chlamydia given exposure Cigarette smoker 8634960 7 F17.210 smoking 10 cigs per daywants to quitreques ts patchessen t to pharm Tobacco user 709659577 Z 72.0 smoking 10 cigs per day wants to quit requests patches sent to pharm Exposure t o Chlamydia trachomatis 220670640 Z20.2 partner likely dx with chlamydiaw ill tx with axithromyc in 1g as single dosehave submitted specimen for test Screening for malignant neoplasm of cervix 772174107 Z12.4 LGSIL and hpv negative 09/2018repe at done today with co-testing [id number] Dillon Villanueva D.O. , [facility] [place] [address] [place] [address] 05/10/2020 11:34:53 05/13/2020 13:52:05 Cigarette smoker [id number] F17.210 did not discuss today Tobacco user 200291487 Z 72.0 Screening mammography 24 927936 Z12.31 Lesion of skin of face 5619057578 06 L98.9 right face- small lesion on right face has been growing/mo re irritated and prominent and changing colors- some redness in the past few months +smoker, +family h/0 cancers- but no skin cancer recommend excision/p ath with plastic surgery [id number] ALANA REYES MD , [facility] [place] [address] [place] [address] 08/01/2020 11:19:10 08/08/2020 11:35:55 Cigarette smoker 01064862 F17.210 Tobacco user 189152907 Z 72.0 Screening mammography 24 927422 Z12.31 Exposure t o communicable disease 956587957 Z20.9 discussed should she get a purulent infection/ abcess should be sure that provider knows has known significan t MRSA exposure. There is no role for decoloniza tion in asymptomat ic individual or even in those who do not have recurrent infection unless special situation. Fear of co ntracting disease 647745094 F40.298 patient reassured, discussed MRSA very common in community, given absolutely no symptoms, normal immune system there is no reason to be anxious about exposure. [id number] Dillon Villanueva D.O. , [facility] [place] [address] [place] [address] 11/27/2020 13:37:33 11/28/2020 11:05:31 Adult health examination 995591947 Z00.00 Counseling 846020201 Z71 .9 including cardiovasc ular risk reduction counseling Depression screening 171 351812 Z13.31 depression screening tool administer ed, entered into emr, scored and discussed, time greater than 7.5 minutes Screening for alcohol abuse 395037316 Z13.39 Screening mammography 24 548822 Z12.31 Cigarette smoker 0048141 7 F17.210 still smoking- slightly more during covidnot ready to quithas choronic suputum production , but no chronic cough Tobacco user 829750581 Z 72.0 Active or passive immunization 410311058 Z23 Sensation of irritation of eye proper 786985783 H57.89 left upper eyelidh/o stye in the past- no significan t swelling todayusing warm compresses if progresses - will send RX erythromic in ointment 6613142 Mg López MD , [facility] [place] [address] [place] [address] 06/23/2021 12:16:38 06/23/2021 12:40:15 Screening for malignant neoplasm of cervix 790465192 Z12.4 12/26/2019 colpo neg, co-testing in 1 year Elevated blood-pressure reading without diagnosis of hypertension 413331510 R03.0 Elevated today, was rushing hereadvise d to check again in a few weeks at home, call with readings. Abnormal c ervical Papanicolaou smear 210767001 R87.619 PAP 09/2018 LGSIL HPV negPAP 11/2019 NIL, HPV pos, neg for 16, 18, 45Colpo ECC 12/2019 negative, no dysplasia, co-testing advised 1 year -- PAP today [id number] Dillon SALMON, [facility] [place] [address] [place] [address] 03/23/2022 13:41:34 03/23/2022 15:29:00 Adult health examination 455828777 Z00.00 Counseling 538010572 Z71 .9 including cardiovasc ular risk reduction counseling Depression screening 171 674703 Z13.31 depression screening tool administer ed, entered into emr, scored and discussed, time greater than 7.5 minutes Screening for alcohol abuse 790391914 Z13.39 Screening mammography 24 303107 Z12.31 due by nov 2022 Tobacco user 991580523 Z 72.0 smokes about 1 pack a monthdoes vape daily Diarrhea 15529328 R19.7 did have colonoscop y in 2019diarrflo vu will do labs in [place]- closer to where she lives- given lab slip today Weight loss 11472709 R63 .4 13 lb weight loss since 2019in the past 6 month- more ERTOH- 2 glasses a night- helps her unwind wa nting to cut down Abnormal c ervical Papanicolaou smear 224280241 R87.619 abnormal pap last year- did not have colposcopy repeated today Anxiety 24287938 F41.1 with sleeplessn essrecent of father, son deployed in [employer], helping her mother who lives in [facility] deprived, overwhelme dpreviousl y exercise was her stress reducerdef ers BH support or medication at this point Health Concerns Section Related Observation LastModified by Organization Detai ls LastModified Time None Recorded Concern Status LastModified by Organization Details LastModified Time None Recorded Advance Directives Directive Y: Payers Encounter Date Sequence Insurance Name Policy Number Policy Fong Covered Member ID Fong Member ID Guarantor Name 05/10/2020 1 [employer] (PPO) [id number] 3 Laura Jacobson [id number] Laura Jacobson 08/01/2020 1 [employer]) [id number] 3 Laura Jacobson [id number] Laura Jacobson 11/27/2020 1 [employer] (PP[employer]) [id number] 3 Laura Jacobson [id number] Laura Jacobson 06/23/2021 1 [employer] (PP[employer]) [id number] 3 Laura Jacobson [id number] Laura Jacobson 03/23/2022 1 [employer] (PP[employer]) [id number] 3 Laura Jacobson [id number] Laura Jacobson Notes Date Note Type Note Provider Name and Address Organization Details Recorded Time 05/10/2020 text/html Time for intake: {{1 2 3 4* 5 6 7 8 9 1 0 11 12 13 14 15 16 17 18 19 20 21 22 23 24 25}} minutes. right side of face- lesion on face- growingthinks it is also changing color- become more redno h/o skin cancer in family+smoker Dillon Villanueva D.O. [address] [place] [address], [phone], [facility] 05/12/2020 11:14:55 08/01/2020 text/html a/vmg-smoking [id number] bypatient.Notes:BF with open sores, went to derm, has been going on for over a mos. dx with teri, cx Wednesday, came back with MRSA. The patient is concerned about having MRSA in her blood. She used to work in a longterm and believes MRSA is a very serious infection and is worried. She has no open sores, she hasn't had no fever. She has absolutely no symptoms. If she had not been told about the MRSA, she would not be concerned Time for intake: {{6.17# 1 2 3 4 5 6 7 8 9 10 11 12 13 14 15 16 17 18 19 20 21 22 2 3 24 25}} minutes. Dillon Rooney.O. [address] [place], [phone], [facility] 08/01/2020 14:22:11/27/2020 text/html Physical Exam/FemaleReported bypatient.PHAPatient is here for a Wellness Visit. She describes her health status as good. Patient's health is the same as last year.Notes:some knee and hip pain- more sedentaryson came back to live with her- has been stressfulRisk Assessment and Lifestyle Change Counseling-female 40-49Reported bypatient.Coronary Artery Disease Risk Assessment:No Family history of coronary artery disease; Regular exercise program; Eats a diet low in fats and high in fiber; No personal history of hypertension; Lipids in good range; No personal history of diabetes;Uses tobacco; No history of peripheral vascular disease, AAA, or carotid disease; No personal history of coronary artery disease Breast Cancer Risk Assessment:No family history of breast cancer; Has been to term Colon Cancer Risk Assessment:No family history of colon polyps or cancer Cervical Cancer Risk Assessment:Has had abnormal pap smear Lung Cancer Risk Assessment:Has used cigarettes Fracture Risk Assessment:No unexplained fracture Diet:Counseled about appropriate portion size; Counseled about eating a diet low in trans and saturated fats and high in fiber, fruits and vegetables; Counseled about the importance of maintaining a positive calcium balance by taking 12-1500 mg ofcalcium and 1000 iu of vitamin D daily Exercise counseling:Discussed the importance of daily physical activity; Discussed the importance of weight bearing exercise Safety:Counseled about protecting skin from the sun and lowering the risk of skin cancer; Counseled about home safety including use of smoke detectors, CO detectors, keeping home water temperature less than 120; Counseled about use of seat belts Advanced Directives:Discussed the importance of a health care proxy and advanced directives Emergerncy :Counseled about appropriate use of the emergency room and availability of urgent care at [facility] [place]-Smoking CessationReported bypatient.Readiness to quit smokingPatient is considering stopping smoking in the next 6 months.; Patient is not considering stopping smoking in the next 6 months. Duration:Currently smoking 10 cigarettes per day Control:Patient has used the following methods to stop smoking buproprion Barriers to Quittingunder stress smoking cessation support activitiesSupport from friends and family (son wants her to quit) Dillon Villanueva D.O. [address] [place] [address], [phone], [facility] 11/27/2020 14:22:30 03/23/2022 text/html Physical Exam/FemaleReported bypatient.PHAPatient is here for a Wellness Visit. She describes her health status as good. Patient's health is the same as last year.Notes:some knee and hip pain- more sedentaryson came back to live with her- has been stressfulRisk Assessment and Lifestyle Change Counseling-female 40-49Reported bypatient.Coronary Artery Disease Risk Assessment:No Family history of coronary artery disease; Regular exercise program; Eats a diet low in fats and high in fiber; No personal history of hypertension; Lipids in good range; No personal history of diabetes;Uses tobacco; No history of peripheral vascular disease, AAA, or carotid disease; No personal history of coronary artery disease Breast Cancer Risk Assessment:No family history of breast cancer; Has been to term Colon Cancer Risk Assessment:No family history of colon polyps or cancer Cervical Cancer Risk Assessment:Has had abnormal pap smear Lung Cancer Risk Assessment:Has used cigarettes Fracture Risk Assessment:No unexplained fracture Diet:Counseled about appropriate portion size; Counseled about eating a diet low in trans and saturated fats and high in fiber, fruits and vegetables; Counseled about the importance of maintaining a positive calcium balance by taking 12-1500 mg ofcalcium and 1000 iu of vitamin D daily Exercise counseling:Discussed the importance of daily physical activity; Discussed the importance of weight bearing exercise Safety:Counseled about protecting skin from the sun and lowering the risk of skin cancer; Counseled about home safety including use of smoke detectors, CO detectors, keeping home water temperature less than 120; Counseled about use of seat belts Advanced Directives:Discussed the importance of a health care proxy and advanced directives Emergerncy :Counseled about appropriate use of the emergency room and availability of urgent care at [facility]-Smoking CessationReported bypatient.Readiness to quit smokingPatient is considering stopping smoking in the next 6 months.; Patient is not considering stopping smoking in the next 6 months. Duration:Currently smoking 10 cigarettes per day Control:Patient has used the following methods to stop smoking buproprion Barriers to Quittingunder stress smoking cessation support activitiesSupport from friends and family (son wants her to quit) Dillon Villanueva D.O. [address] [place] [address], [phone], [facility] 03/23/2022 14:48:10 OBGyn Episode No OBEpisode recorded.
== END 2024-07-12 15:15 | disposition home or self-care (01) ==
PROVIDERS: Visit Provider Obstetrics & Gynecology
DX: Z01.419 Encounter for gynecological examination (general) (routine) without abnormal findings (principal)
CPT/HCPCS: 99386; 99459

== ENCOUNTER 2024-07-12 14:32 | Outpatient (REF) | payer OTHER, SELFPAY ==
--- OUTSIDE RECORDS SUMMARY | 2024-07-12 16:16 | XMS_ITS | Encounter Summary ---
Author Organization [facility] Address [address] [place] [phone] Care Team Providers Care Executive Officer Name Role Phone Holly Lal MD Primary Care Pr ovider Reason for Referral * Imaging (Routine) - Pending Review Specialty Diagnoses / Procedures Referred By Waldo corado Referred To Contact Radiology Diagnoses Liver lesion Procedures US Abdomen Limited Holly Lal MD [address] [place] [address] Phone: tel: fax: [address] Phone: tel: Referral ID Status Reason Start Date Expiration Date V isits Requested Visits Authorized [id number] Pending Review 06/19/2024 06/19/2025 1 1 Reason for Visit * Imaging (Routine) - Pending Review Specialty Diagnoses / Procedures Referred By Waldo corado Referred To Contact Radiology Diagnoses Liver lesion Procedures US Abdomen Limited Holly Lal MD [address] [place] [address] Phone: tel: fax: [address] Phone: tel: Referral ID Status Reason Start Date Expiration Date V isits Requested Visits Authorized [id number] Pending Review 06/19/2024 06/19/2025 1 1 Encounter Details Date Type Department Care Team (Latest Contact Info) Description 07/10/2024 7:27 AM EDT - 07/10/2024 11:59 PM EDT Hospital Encounter Radiology Department - [address] [phone] Liver lesion Discharge Disposition: Home or Self [...] care for your loved ones. For example, summer child caregiver or elderly care for an older adult? [...] EDT Consult Gastroenterology - [address] [facility] [address] [place] [phone] Saroj Redmond PA [address] [address] 08/29/2024 10:00 AM EDT Appointment Radiology Department [address] [address] 09/04/2024 3:30 PM EDT Office Visit [facility] Hematology Oncology [address] [place] [address] Tracie Bryant PA [address] [place] [address] 05/24/2025 3:00 PM EDT Office Visit Adult Medicine [address] [address] Holly Lal MD [address] [place] [phone] documented as of this encounter Procedures Procedure [...] Signed Date: 07/10/2024 09:17 ET Workstation ID: [id number] Transcribed By: Self Edit Transcribed Date: 07/10/2024 [...] Signed Date: 07/10/2024 09:17 ET Workstation ID: [id number] Transcribed By: Self Edit Transcribed Date: 07/10/2024 08:52 ET us Holly Lal MD IMG US PROCEDURE S Final Result documented in this encounter Visit Diagnoses Diagnosis Liver lesion Other specified disorders of liver Encounter for screening mammogram for breast cancer documented in this encounter Additional Health Concerns Assessment Noted Time PHQ-9 Depression Total Score: 3 05/18/19 25 3:00 PM EDT documented as of this encounter Care Teams Executive Officer Relationship Specialty Start Date End Date Holly Lal MD [address] [place] [phone] PCP - General 10/02/22 documented as of this encounter
--- OUTSIDE RECORDS SUMMARY | 2024-07-12 16:16 | XMS_ITS | Encounter Summary ---
Author Organization [facility] Address [address] [place] [phone] Care Team Providers Care Mine Deputy Name Role Phone Holly Lal MD Primary Care Pr ovider Reason for Referral * Consultation (Routine) - Authorized Specialty Diagnoses / Procedures Referred By Waldo corado Referred To Contact Nephrology Diagnoses Angiomyolipoma of kidney Holly Lal MD [address] [place] [address] Phone: tel: fax: Nephrology [address] Phone: tel: fax: Referral ID Status Reason Start Date Expiration Date Visits Requested Visits Authorized [id number] Authorized Specialty Services Required 07/12/2024 07/12/2025 1 1 * Consultation (Routine) - Authorized Specialty Diagnoses / Procedures Referred By Waldo corado Referred To Contact Hematology / Hematology and Oncology Diagnoses Neutropenia, unspecified type (CMS/HCC V24) Holly Lal MD [address] [place] [address] Phone: tel: fax: [facility] Hematology Oncology [address] [place] [address] Phone: tel: fax: Referral ID Status Reason Start Date Expiration Date Visits Requested Visits Authorized [id number] Authorized Specialty Services Required 07/12/2024 07/12/2025 1 1 * Consultation (Routine) - Authorized Specialty Diagnoses / Procedures Referred By Waldo corado Referred To Contact Gastroenterology Diagnoses Liver cyst Liver hemangioma Holly Lal MD [address] [place] [address] Phone: tel: fax: Gastroenterology - [address] [facility] [address] [place] [phone] Phone: tel: fax: Referral ID Status Reason Start Date Expiration Date Visits Requested Visits Authorized [id number] Authorized Specialty Services Required 07/12/2024 07/12/2025 1 1 Encounter Details Date Type Department Care Team (Late st Contact Info) Description 07/12/2024 Telephone Adult Medicine [address] [phone] Holly Lal MD [address] [place] [phone] Social History Tobacco Use Types Packs/Day Years [...] care for your loved ones. For example, teacher early childhood development or elderly care for an older adult? [...] Upcoming Encounters Date Type Department Care Team ([facility] st Contact Info) Description 08/21/2024 1:20 PM EDT Consult Gastroenterology - [address] [place] [phone] Sraoj Redmond PA [address] [address] 08/29/2024 10:00 AM EDT Appointment Radiology Department - [address] [address] 09/04/2024 3:30 PM EDT Office Visit [facility] Hematology Oncology [address] [place] [phone] Tracie Bryant PA [address] [place] [address] 05/24/2025 3:00 PM EDT Office Visit Adult Medicine [address] [address] Holly Lal MD [address] [place] [phone] Scheduled Referrals Name Type Priority Associated Diagnoses Order Schedule Ambulatory referral to Gastroenterology Outpatient Referral Routine Liver cyst Liver hemangioma Expected: 07/12/2024, Expires: 07/12/2025 Ambulatory referral to Hematology Outpatient Referral Routine Neutropenia, unspecified type ([facility] V24) 1 Occurrences starting 07/12/2024 until 07/12/2025 Ambulatory referral to Nephrology Outpatient Referral Routine Angiomyolipoma of kidney 1 Occurrences starting 07/12/2024 until 07/12/2025 documented as of this encounter Visit Diagnoses Diagnosis Angiomyolipoma of kidney- Primary Liver cyst Other specified disorders of liver Liver hemangioma Neutropenia, unspecified type ([facility] V24) Encounter for screening mammogram for breast cancer documented in this encounter Additional Health Concerns Assessment Noted Time PHQ-9 Depression Total Score: 3 05/18/19 25 3:00 PM EDT documented as of this encounter Care Teams Mine Deputy Relationship Specialty Start Date End Date Holly Lal MD [address] [place] [id number] PCP - General 10/02/22 documented as of this encounter
--- OUTSIDE RECORDS SUMMARY | 2024-07-12 16:16 | XMS_ITS | Clinical Summary ---
Author Organization [address] Address [address] [place] [phone] Phone Care Team Providers Care Parts Identification Technician Name Role Phone Holly Lal MD Primary [...] Care Team Description 07/12/2024 Telephone Adult Medicine [address] [phone] Holly Lal MD 07/10/2024 7:27 AM EDT - 07/10/2024 11:59 PM EDT Hospital Encounter Radiology Department - [address] [phone] Liver lesion Discharge Disposition: Home or Self Care 06/20/2024 Telephone Lung Screening Program - [address] [phone] Latia Paulino MA Results (Baseline - Lung Screening) 06/14/2024 3:45 PM EDT - 06/14/2024 11:59 PM EDT Hospital Encounter [facility] CT Scan [address] [place] [phone] Encounter for screening for lung cancer; History of tobacco use Discharge Disposition: Home or Self Care 06/14/2024 3:30 PM EDT Office Visit Lung Screening Program - [place] [address] [facility] [address] [place] [phone] Ward Leung PA Encounter for screening for malignant neoplasm of lung in former smoker who quit in past 15 years with 30 pack year history or greater (Primary Dx); Moderate tobacco use disorder, in sustained remission 06/09/2024 Telephone Adult Medicine [address] [phone] Saray Cottrell MA Letter for School/Work 06/05/2024 Telephone Adult Medicine [address] [phone] Camila Baird MA letter request 05/22/2024 Telephone Adult [address] [phone] Holly Lal MD Referral 05/17/2024 3:00 PM EDT Office Visit [address] [phone] Holly Lal MD Annual physical exam (Primary Dx); Moderate tobacco use disorder, in sustained remission; Current every day nicotine vaping; Primary insomnia; Cervical cancer screening; History of diverticulitis of colon; Screening for metabolic disorder; Skin lesion; Calf cramp 04/17/2024 Telephone Adult Medicine [address] [phone] Steffany Watkins RN 04/17/2024 Nurse Triage Adult [address] [phone] Holly Lal MD Diverticulitis from Last 3 Months Immunizations Name Administration Dates Next Due Tdap Tetanus diptheria acell ular pertussis (Boostrix; Adacel) 7yo and older 05/08/2022 Surgical History Surgery Date Site/Laterality Comments OTHER SURGICAL HISTORY 03/08/2004 - 03/07/2005 PROCEDURE: ME COLECTOMY PARTIAL W/ANASTOMOSIS COLONOSCOPY 12/19/2019 repeat in [...] for your loved ones. For example, child care specialist or elderly care for an older [...] 1:20 PM EDT Consult Gastroenterology - 299 [facility] [address] [phone] Saroj Redmond PA [address] [phone] 08/29/2024 10:00 AM EDT Appointment Radiology Department - [address] [phone] 09/04/2024 3:30 PM EDT Office Visit [facility] Hematology Oncology [address] [place] [phone] Tracie Bryant PA [address] [place] [address] 05/24/2025 3:00 PM EDT Office Visit Adult Medicine [address] [phone] Holly Lal MD [address] [place] [phone] Health Maintenance Due Date Last Done Comments [...] LAB CHEMISTRY METHOD 07/10/2024 11:16 AM EDT [facility] Triglycerides 65 0 - 150 mg/dL LAB CHEMISTRY METHOD 07/10/2024 11:16 AM EDT [facility] HDL 98 >=40 mg/dL LAB CHEMISTRY METHOD 07/10/2024 11:16 AM EDT [facility] LDL Calculated 79 0 - 100 mg/dL LAB CHEMISTRY METHOD 07/10/2024 11:16 AM T [facility] VLDL Cholesterol Tato 13 mg/dL LAB CHEMISTRY METHOD 07/10/2024 11:16 AM EDT [facility] Non HDL Chol. (LDL+VLDL) 92 <145 mg/dL LAB CHEMISTRY METHOD 07/10/2024 11:16 AM EDT [facility] Chol/HDL Ratio 1.9 0.0 - 4.4 LAB CHEMISTRY METHOD 07/10/2024 11:16 AM EDT [facility] Blood Venous blood specimen / Unknown Venipuncture / Unknown 07/10/2024 8:26 AM EDT 07/10/2024 8:26 AM EDT Holly Lal MD LAB BLOOD ORDERA BLES Final Result [facility] [address] [place] [address], * (ABNORMAL) CBC auto differential (07/10/2024 8:26 AM EDT) WBC 3.4(L) 4.8 - 10.8 K/mcL LAB HEMETOLOGY METHOD 07/10/2024 10:51 AM [facility] RBC 4.20 3.80 - 4.80 M/mcL LAB HEMETOLOGY METHOD 07/10/2024 10:51 AM [facility] Hemoglobin 14.1 11.5 - 16.0 g/dL LAB HEMETOLOGY METHOD 07/10/2024 10:51 AM [facility] Hematocrit 40.9 35.0 - 47.0 % LAB HEMETOLOGY METHOD 07/10/2024 10:51 AM EDT [facility] MCV 97.1 79.0 - 98.0 FL LAB HEMETOLOGY METHOD 07/10/2024 10:51 AM [facility] MCH 33.5(H) 27.0 - 32.0 pcg LAB HEMETOLOGY METHOD 07/10/2024 10:51 AM [facility] MCHC 34.5 32.0 - 37.0 g/dL LAB HEMETOLOGY METHOD 07/10/2024 10:51 AM [facility] RDW 12.1 11.0 - 15.0 % LAB HEMETOLOGY METHOD 07/10/2024 10:51 AM [facility] Platelets 169 130 - 400 K/mcL LAB HEMETOLOGY METHOD 07/10/2024 10:51 AM [facility] MPV 10.8 7.0 - 11.0 FL LAB HEMETOLOGY METHOD 07/10/2024 10:51 AM [facility] NRBC 0.0 <1.0 % LAB HEMETOLOGY METHOD 07/10/2024 10:51 AM [facility] NRBC Absolute 0.00 <0.10 K/mcL LAB HEMETOLOGY METHOD 07/10/2024 10:51 AM [facility] Neutrophils Relative 43.6 % LAB HEMETOLOGY METHOD 07/10/2024 10:51 AM [facility] Lymphocytes Relative 45.7 % LAB HEMETOLOGY METHOD 07/10/2024 10:51 AM [facility] Monocytes Relative 8.3 % LAB HEMETOLOGY METHOD 07/10/2024 10:51 AM [facility] Eosinophils Relative 1.2 % LAB HEMETOLOGY METHOD 07/10/2024 10:51 AM [facility] Basophils Relative 0.9 % LAB HEMETOLOGY METHOD 07/10/2024 10:51 AM [facility] Immature Granulocytes Relative 0.3 % LAB HEMETOLOGY METHOD 07/10/2024 10:51 AM [facility] Neutrophils Absolute 1.47(L) 1.50 - 7.00 K/mcL LAB HEMETOLOGY METHOD 07/10/2024 10:51 AM [facility] Lymphocytes Absolute 1.54 1.00 - 5.00 K/mcL LAB HEMETOLOGY METHOD 07/10/2024 10:51 AM EDT [facility] Monocytes Absolute 0.28 0.20 - 1.00 K/[facility] HEMETOLOGY METHOD 07/10/2024 10:51 AM EDT [facility] Eosinophils Absolute 0.04 0.00 - 0.50 K/[facility] HEMETOLOGY METHOD 07/10/2024 10:51 AM EDT [facility] Basophils Absolute 0.03 0.00 - 0.20 K/[facility] HEMETOLOGY METHOD 07/10/2024 10:51 AM EDT [facility] Immature Granulocytes Absolute 0.01 0.00 - 0.03 K/[facility] HEMETOLOGY METHOD 07/10/2024 10:51 AM EDT [facility] Blood Venous blood specimen / Unknown Venipuncture / Unknown 07/10/2024 8:26 AM EDT 07/10/2024 8:26 AM EDT Holly Lal MD LAB BLOOD ORDERA BLES Final Result [facility] [address] [place] [address], * Hemoglobin A1c (07/10/2024 8:26 AM EDT) Hemoglobin A1C 5.0 <6.5 % LAB CHEMISTRY METHOD 07/10/2024 1:43 PM EDT [facility] Mean Bld Glu Estim. 97 mg/dL LAB CHEMISTRY METHOD 07/10/2024 1:43 PM EDT [facility] Blood Venous blood specimen / Unknown Venipuncture / Unknown 07/10/2024 8:26 AM EDT 07/10/2024 8:26 AM EDT us Holly Lal MD LAB BLOOD ORDERA BLES Final Result [facility] [address] [place] [address], * Comprehensive metabolic panel (07/10/2024 8:26 AM EDT) Sodium 141 133 - 145 mmol/L LAB CHEMISTRY METHOD 07/10/2024 11:16 AM [facility] Potassium 4.1 3.5 - 5.5 mmol/L LAB CHEMISTRY METHOD 07/10/2024 11:16 AM [facility] Chloride 105 96 - 110 mmol/L LAB CHEMISTRY METHOD 07/10/2024 11:16 AM [facility] CO2 28 21 - 32 mmol/L LAB CHEMISTRY METHOD 07/10/2024 11:16 AM [facility] Anion Gap 8 3 - 11 LAB CHEMISTRY METHOD 07/10/2024 11:16 AM [facility] Glucose 80 70 - 100 mg/dL LAB CHEMISTRY METHOD 07/10/2024 11:16 AM [facility] BUN 7 5 - 25 mg/dL LAB CHEMISTRY METHOD 07/10/2024 11:16 AM [facility] Creatinine 0.55 0.50 - 1.10 mg/dL LAB CHEMISTRY METHOD 07/10/2024 11:16 AM [facility] eGFR 106 >=60 mL/min/1. 73m2 LAB CHEMISTRY METHOD 07/10/2024 11:16 AM [facility] Comment:Calculation based on the??Chronic Kidney Disease Epidemiology Collaboration (CKD-EPI) equation refit??without adjustment for race. BUN/Creatinine Ratio 12.7 LAB CHEMISTRY METHOD 07/10/2024 11:16 AM [facility] Calcium 8.9 8.5 - 10.5 mg/dL LAB CHEMISTRY METHOD 07/10/2024 11:16 AM [facility] AST (SGOT) 26 10 - 42 unit/L LAB CHEMISTRY METHOD 07/10/2024 11:16 AM EDT [facility] ALT (SGPT) 25 10 - 60 unit/L LAB CHEMISTRY METHOD 07/10/2024 11:16 AM EDT [facility] Alkaline Phosphatase 66 42 - 121 unit/L LAB CHEMISTRY METHOD 07/10/2024 11:16 AM EDT [facility] Total Protein 7.1 6.0 - 8.0 g/dL LAB CHEMISTRY METHOD 07/10/2024 11:16 AM EDT [facility] Albumin 4.0 3.2 - 5.0 g/dL LAB CHEMISTRY METHOD 07/10/2024 11:16 AM EDT [facility] Total Bilirubin 1.0 0.0 - 1.4 mg/dL LAB CHEMISTRY METHOD 07/10/2024 11:16 AM EDT [facility] Blood Venous blood specimen / Unknown Venipuncture / Unknown 07/10/2024 8:26 AM EDT 07/10/2024 8:26 AM EDT Holly Lal MD LAB BLOOD ORDERA BLES Final Result [facility] [address] [place] [address], * US Abdomen Limited (07/10/2024 8:06 AM [...] Dictated Date: 07/10/2024 08:52 ET Assigned Physician: Nuyrs Guillen Reviewed and Electronically Signed By: Nurys Guillen Signed Date: 07/10/2024 09:17 ET Workstation ID: [id number] Transcribed By: Self Edit Transcribed Date: 07/10/2024 [...] Signed Date: 07/10/2024 09:17 ET Workstation ID: [id number] Transcribed By: Self Edit Transcribed Date: 07/10/2024 08:52 ET Holly Lal MD [facility] PROCEDURE S Final Result * CT [...] hepatic lesion which requires additional imaging evaluation. Teleprince YOUNG ([id number]) -------- FINAL REPORT -------- Dictated By: Tara Barakat Dictated Date: 06/19/2024 09:22 ET Assigned Physician: Tara Barakat Reviewed and Electronically Signed By: Tara Barakat Signed Date: 06/19/2024 10:10 ET Workstation ID: [id number] Transcribed By: Self Edit Transcribed Date: 06/19/2024 09:30 ET Narrative 06/19/2024 10:10 AM EDT History: ??59 year-old 31 pack-year former smoker, asymptomatic, for lung cancer screening. Quit smoking 3 years ago. Comparison: No comparison imaging at this institution. Technique: Helical volumetric imaging of the thorax was performed, using low- dose technique, without IV contrast. DLP: 114.80 mGy/cm ??CTDIvol: 3.22 mGy Gift Pinpoint VCT Iterative reconstruction technique Findings: Lungs and [...] contrast. DLP: 114.80 mGy/cm CTDIvol: 3.22 mGy InsightETET Iterative reconstruction technique Findings: Lungs and Airways: [...] hepatic lesion which requires additionalimaging evaluation. Telerad HECTOR ([id number]) -------- FINAL REPORT -------- Dictated By: Tara Barakat Dictated Date: 06/19/2024 09:22 ET Assigned Physician: Tara Barakat Reviewed and Electronically Signed By: Tara Barakat Signed Date: 06/19/2024 10:10 ET Workstation ID: [id number] Transcribed By: Self Edit Transcribed Date: 06/19/2024 [...] tion,abstr actedd Anatomical Region Laterality Modality Other us Historical Provider HEALTH MAINTENANCE Final Result from Last 3 Months or Most Recently Relevant to Health Maintenance Insurance [facility] Care Teams Parts Identification Technician Relationship Specialty Start Date End Date Holly Lal MD [address] [place] [address] [id number] PCP - General 10/02/22
[2024-07-19 10:31] LABS: HPV Genotype 16 Negative (Negative); HPV Genotype 18 Negative (Negative); HPV High Risk Negative (Negative)
== END 2024-07-12 14:33 | disposition home or self-care (01) ==
LOC: HO.LNP 14:32
PROVIDERS: Visit Provider Obstetrics & Gynecology
DX: Z01.419 Encounter for gynecological examination (general) (routine) without abnormal findings (principal)
CPT/HCPCS: 87626; 88175